=== PATIENT | female | born 2000 | race Caucasian/White ===

== ENCOUNTER 2021-10-13 11:04 | Emergency (ER) | payer OTHER, SELFPAY ==
[2021-10-13 11:15] VITALS: BP 120/65; PULSE 89; RESP 16; TEMP 37.1; O2SAT 99
--- NOTE | 2021-10-13 12:41 | ED.URI ---
HPI - URI/Sore Throat General Chief Complaint: Upper Respiratory Infection Stated Complaint: ears sinus congestion Time Seen by Provider: 10/13/21 12:26 Source: patient and RN notes reviewed Mode of arrival: ambulatory Limitations: no limitations History of Present Illness HPI Narrative: Patient presents today complaining of a 6-day history of facial pressure, cough, bilateral ear pain right greater than left, postnasal drainage, and sore throat. She currently rates her sore throat 5/10 and has been taking Claritin, ibuprofen, and Tylenol with some mild relief. MD elicited complaint: cough, sore throat and nasal congestion Related Data Home Medications Medication Instructions Recorded Confirmed norgestimate-ethinyl estradiol 1 tablet PO DAILY 10/13/21 10/13/21 [[employer]-Lo-Saundra] Allergies Allergy/AdvReac Type Severity Reaction Status Date / Time No Known Allergies Allergy Verified 10/13/21 11:27 Review of Systems Review of Systems: CONSTITUTIONAL: Denies body aches, fever, chills, or sweats. EYES: Denies visual changes, redness, or discharge. ENT: Denies rhinorrhea, or otalgia.+ Congestion, sore throat, postnasal drainage CARDIOVASCULAR: Denies chest pain, palpitations, or edema. RESPIRATORY: Denies dyspnea.+ Cough GASTROINTESTINAL: Denies abdominal pain, nausea, vomiting, or diarrhea. GENITOURINARY: Denies dysuria or hematuria. SKIN: Denies rash, itching, or wounds. MUSCULOSKELETAL: Denies back pain, joint pain, or myalgia. NEUROLOGIC: Denies headache, numbness, tingling, or weakness. PSYCH: Denies depression or anxiety. PMFSH Comments At time of signature, I have reviewed and agree with nursing past medical, surgical, social and family history unless otherwise noted. Please see nursing chart for further information. There is no relevant family history pertinent to the presenting complaint Exam Narrative: GENERAL: Well-appearing, well-nourished, and in no acute distress. HEAD: Normocephalic, atraumatic. EYES: EOMI. No redness or drainage. Conjunctivae normal. ENT: Mucous membranes pink and moist. Nares clear. No rhinorrhea. TMs normal bilaterally. Throat erythematous posteriorly with moderate amount of white postnasal drainage. Uvula midline. NECK: Normal AROM. Supple. No lymphadenopathy. CHEST: No respiratory distress. Clear to auscultation. HEART: Regular rate and rhythm. No murmur appreciated. Normal peripheral pulses. EXTREMITIES: Normal range of motion. No edema. SKIN: Warm, dry, no rash. Capillary refill normal. Normal skin turgor. NEURO: No focal deficits. Alert and oriented x3. Gait steady. PSYCH: Normal affect. No signs of depression or anxiety. Course Vital Signs Vital signs: Vital Signs Temperature 98.7 F 10/13/21 11:15 Pulse Rate 89 10/13/21 11:15 Respiratory Rate 16 10/13/21 11:15 Blood Pressure 120/65 10/13/21 11:15 Pulse Oximetry 99 10/13/21 11:15 Temperature 98.7 F 10/13/21 11:15 Pulse Rate 89 10/13/21 11:15 Respiratory Rate 16 10/13/21 11:15 Blood Pressure 120/65 10/13/21 11:15 Pulse Oximetry 99 10/13/21 11:15 Reviewed MDM - URI/Sore Throat Differential Diagnosis Differential diagnosis: Likely upper respiratory infection, otitis media, sinusitis, viral infection and pharyngitis Critical Care Time Critical Care Time Critical Care Time: No Discharge Plan Discharge Clinical Impression: Upper respiratory infection Qualifiers: URI type: unspecified URI Qualified Code(s): J06.9 - Acute upper respiratory infection, unspecified Patient Disposition: Home, Self-Care Condition: Stable Instructions: Upper Respiratory Infection (DC) Additional Instructions: Cameron's symptoms are likely due to a viral illness, which is not treated with antibiotics. Virus symptoms can last for up to 10-14 days. Take Tylenol or ibuprofen for pain or fever. Rest and stay hydrated. Follow up with your PCP in 7 days if symptoms are not improving, or so
== END 2021-10-13 12:43 | disposition home or self-care (01) ==
PROVIDERS: Emergency Provider Nurse Practitioner; PCP Hospitalist
DX: J06.9 Acute upper respiratory infection, unspecified (principal); J45.909 Unspecified asthma, uncomplicated
CPT/HCPCS: 99213; G0463

== ENCOUNTER 2024-06-12 02:09 | Emergency (ER) | payer OTHER, SELFPAY ==
[2024-06-12 02:14] VITALS: BP 111/75; PULSE 86; RESP 17; TEMP 36.6; O2SAT 98
--- NOTE | 2024-06-12 03:57 | PC.NURSE ---
Patient and Parent to intake desk to notify this rn that they were taking off . This RN offered that if needed they are always welcome to come back, and apologized for the wait. Pt ambulatory with steady gait to exit. No distress Noted.
== END 2024-06-12 04:26 | disposition left against medical advice (07) ==
LOC: ANHED 04:22
DX: R10.9 Unspecified abdominal pain (principal)
CPT/HCPCS: 99199

== ENCOUNTER 2024-06-12 15:03 | Emergency (ER) | payer OTHER, SELFPAY ==
[2024-06-12 15:06] VITALS: BP 115/77; PULSE 96; RESP 16; TEMP 36.7; O2SAT 99
--- NOTE | 2024-06-12 17:08 | ED.ABDPAIN ---
HPI - Abdominal Pain General Chief Complaint: Abdominal Pain Stated Complaint: abd pain Time Seen by Provider: 06/12/24 16:40 History of Present Illness HPI narrative: This is a 23-year-old otherwise healthy female who is approximately 12 weeks by last ultrasonography. Today patient presents to the ED for encounter after her cat had jumped on her lower abdomen earlier in the morning. She states she had a immediate sensation of pain in her lower abdomen that has slowly been subsiding throughout the morning after she took some Tylenol at home. She experienced no gushing of blood or leakage of fluids and has no difficulties going to the bathroom. This is her 1st and she has not had a follow-up OBGYN appointment since her 1st ultrasound. Denies any systemic features at this time and states her pain has mostly subsided. Was previously in her normal state of health. No other trauma or injuries. Related Data Home Medications Medication Instructions Recorded Confirmed montelukast 10 mg tablet 10 mg PO DAILY 02/07/22 02/07/22 (Singulair) pantoprazole 40 mg tablet,delayed 40 mg PO QAM 02/07/22 02/07/22 release Allergies Allergy/AdvReac Type Severity Reaction Status Date / Time vortioxetine Allergy Mild Itching Verified 06/12/24 15:03 [From [employer]] Review of Systems Review of Systems: As reviewed above in the [facility] Surgical History Surgical History History of tonsillectomy Family History Family History Mother Diabetes mellitus Social History Social History Smoking status: Never smoker Alcohol intake: never Substance use: never Living arrangements: with family Occupation/Education: unemployed Gender identity (if verbalized by the patient): Female Exam Narrative: GENERAL: [Well-appearing, well-nourished, and in no acute distress.] HEAD: [Normocephalic, atraumatic.] EYES: [PERRLA and EOMI.] ENT: Nares clear, no rhinorrhea or epistaxis. Mucous membranes moist. NECK: Supple. CHEST: [Clear to auscultation. No respiratory distress.] HEART: [Regular rate and rhythm]. No murmur heard. [Normal peripheral pulses.] ABDOMEN: [Soft, nondistended], [nontender], [No rigidity or guarding] no lesions, bruising or evidence of trauma to the abdomen or pelvis EXTREMITIES: Normal range of motion. [No edema.] SKIN: Warm, dry, no rash. NEURO: [No focal deficits]. Alert and oriented [x3.] PSYCH: [Normal mood and affect.] Course Vital Signs Vital signs: Vital Signs Temperature 36.7 C 06/12/24 15:06 Pulse Rate 96 06/12/24 15:06 Respiratory Rate 16 06/12/24 15:06 Blood Pressure 115/77 06/12/24 15:06 Pulse Oximetry 99 06/12/24 15:06 Oxygen Delivery Room Air 06/12/24 15:06 Temperature 36.7 C 06/12/24 15:06 Pulse Rate 96 06/12/24 15:06 Respiratory Rate 16 06/12/24 15:06 Blood Pressure 115/77 06/12/24 15:06 Pulse Oximetry 99 06/12/24 15:06 Oxygen Delivery Room Air 06/12/24 15:06 MDM - Abdominal Pain MDM Narrative Medical decision making narrative: This is an otherwise healthy 23-year-old female who is approximately 12 weeks by last ultrasonography who sustained some minor abdominal trauma to the lower abdomen/pelvis. Her symptoms are mostly subsided now and occurred earlier this morning after her cat jumped on her. No red flag symptoms such as vaginal bleeding, vaginal leakage of fluids, dysuria, abdominal pain or back pain. Her symptoms subsided with Tylenol. Patient previously had established IUP on ultrasound at her OB GYNs office and she has a follow-up appointment in 4 weeks. A bedside ultrasound was conducted by myself which showed intrauterine with live fetus with a heart rate of approximately 150 beats per minute
[2024-06-12] MEDS: ACETAMINOPHEN 500 MG TABLET 1000 MG PO (17:18)
[2024-06-12 17:20] VITALS: BP 113/69; PULSE 71; RESP 19; O2SAT 100
== END 2024-06-12 17:36 | disposition home or self-care (01) ==
PROVIDERS: Emergency Provider Student in an Organized Health Care Education/Training Program
DX: O9A.211 Injury, poisoning and certain other consequences of external causes complicating pregnancy, first trimester (principal); S39.91XA Unspecified injury of abdomen, initial encounter; Z3A.12 12 weeks gestation of pregnancy; W55.09XA Other contact with cat, initial encounter
CPT/HCPCS: 99282; A9270

== ENCOUNTER 2024-08-27 18:16 | Emergency (ER) | payer OTHER, SELFPAY ==
[2024-08-27 18:22] VITALS: BP 121/70; PULSE 93; RESP 18; TEMP 36.7; O2SAT 100
[2024-08-27 18:53] VITALS: O2SAT 99
--- NOTE | 2024-08-27 19:16 | ED_ITS ---
HPI - Recheck/Abnormal Lab/Rx General Chief Complaint: Recheck/Abnormal Lab/Rx Stated Complaint: 23 weeks preg, low BP Time Seen by Provider: 08/27/24 19:04 History of Present Illness HPI narrative: 23-year-old female who is approximately 23 weeks by last ultrasonography presenting to the emergency department for evaluation of low blood pressure and low blood sugar concerns. Patient states her blood pressure at home was between 106 and 113 systolic and she was concerned that this was low for her. She has been having vague symptoms throughout her including nauseousness, vague pains, dizziness sensations especially when she gets up from a standing position. Endorses some occasional nausea without vomiting. No abdominal pain or vaginal bleeding or discharge. She was otherwise in her normal state of health and states her (ongoing its expected course. She has or OBGYN appointment next week. No complications or concerns from her previous appointment. No trauma injuries or illnesses. Related Data Home Medications Medication Instructions Recorded Confirmed montelukast 10 mg tablet 10 mg PO DAILY 02/07/22 02/07/22 (Singulair) pantoprazole 40 mg tablet,delayed 40 mg PO QAM 02/07/22 02/07/22 release Allergies Allergy/AdvReac Type Severity Reaction Status Date / Time vortioxetine Allergy Mild Itching Verified 06/12/24 15:03 [From [employer]] Review of Systems Review of Systems: As reviewed above [facility] Surgical History Surgical History History of tonsillectomy Family History Family History Mother Diabetes mellitus Social History Social History Smoking status: Never smoker Alcohol intake: never Substance use: never Living arrangements: with family Occupation/Education: unemployed Gender identity (if verbalized by the patient): Female Exam Narrative: GENERAL: [Well-appearing, well-nourished, and in no acute distress.] HEAD: [Normocephalic, atraumatic.] EYES: [PERRLA and EOMI.] ENT: Nares clear, no rhinorrhea or epistaxis. Mucous membranes moist. NECK: Supple. CHEST: [Clear to auscultation. No respiratory distress.] HEART: [Regular rate and rhythm]. No murmur heard. [Normal peripheral pulses.] ABDOMEN: Gravid abdomen above the umbilicus, soft and nondistended, [nontender], [No rigidity or guarding] EXTREMITIES: Normal range of motion. [No edema.] SKIN: Warm, dry, no rash. NEURO: [No focal deficits]. Alert and oriented [x3.] PSYCH: [Normal mood and affect.] Course Vital Signs Vital signs: Vital Signs Temperature 36.7 C 08/27/24 18:22 Pulse Rate 93 08/27/24 18:22 Respiratory Rate 18 08/27/24 18:22 Blood Pressure 121/70 08/27/24 18:22 Pulse Oximetry 100 08/27/24 18:22 Oxygen Delivery Room Air 08/27/24 18:22 Temperature 36.7 C 08/27/24 18:22 Pulse Rate 93 08/27/24 18:22 Respiratory Rate 18 08/27/24 18:22 Blood Pressure 121/70 08/27/24 18:22 Pulse Oximetry 99 08/27/24 18:53 Oxygen Delivery Room Air 08/27/24 18:22 MDM - Recheck/Abnormal Lab/Rx MDM Narrative Medical decision making narrative: 23-year-old female who is approximately 23 weeks by last menstrual period and ultrasonography days. She presents with concerns of low blood pressure although her blood pressure at home readings have been normal within 106 and 113. She has multiple blood pressure readings here in the ED that are also normal she has a unremarkable set of vitals with no tachycardia, fever, hypoxia or blood pressure concerns. She is describing symptomatology that sounds very much like ongoing without any complications however given that she did present to the ED and is worried we did obtain laboratory studies including CBC, BMP magnesium and TSH level. She was counseled on the expected course of and red flags to watch out for. Laboratory studies were la rgely unremarkable and patient was reassured. She has an appointment with her OBGYN in 6 days. Return precautions described and patient was stable for discharge and agreeable at this time. Patient was re-evaluated and continued to be asymptomatic with normal vital signs. Her workup did return with a hemoglobin of 11.5 was is just under the lower limit of normal. No baseline but she does not have any bleeding or concerns for acute anemia. Likely secondary to the ongoing . Small le ukocytosis of 11.1 but no infectious symptoms urinary complaints, or fever so favored to be reactive. Chemistry panel within normal limits, normal renal function panel. Normal TSH levels. Patient was re-evaluated and after we went over her laboratory studies she was stable for discharge home at this time with OBGYN follow-up. She is scheduled with her OBGYN for an appointment in the next 6 days. Patient was given return precautions and stable for discharge at this time. Medical Records Attestation: I reviewed the patient's medical records. Lab Data Attestation: I reviewed the patient's lab results. 08/27/24 20:46 08/27/24 20:46 Labs: Lab Results 08/27/24 Range/Units 20:46 WBC 11.8 H (4.5-10.0) K/mm3 RBC 3.47 L (4.2-5.4) M/mm3 Hgb 11.5 L (12.0-15.0) g/dL Hct 32.5 L (37.0-47.0) % MCV 93.7 (80-100) fl MCH 33.1 (26-34) pg MCHC 35.4 (32-36) g/dl RDW 14.2 (11.5-14.5) % Plt Count 209 (150-375) k/mm3 MPV 10.3 (7.4-10.4) fl Immature Gran % (Auto) 0.7 H (0-0.5) % Neut % (Auto) 71.7 (45.5-73.1) % Lymph % (Auto) 19.0 (18.3-44.2) % [place] % (Auto) 7.1 (2.6-8.5) % Eos % (Auto) 1.2 (0-4.4) % Baso % (Auto) 0.3 (0.2-1.2) % Lymph # (Auto) 2.25 (0.9-3.2) K/mm3 [place] # (Auto) 0.8 H (0.1-0.6) K/mm3 Eos # (Auto) 0.1 (0-0.3) K/mm3 Baso # (Auto) 0.0 (0.0-0.1) K/mm3 Abs Immat Gran (auto) 0.08 H (0.00-0.031) K/mm3 Absolute Neuts (auto) 8.5 H (1.3-6.7) K/mm3 Absolute Nucleated RBC 0.000 (0.0-0.012) K/mm3 Nucleated RBC % 0.0 (0.0-0.2) % Sodium 134 L (137-145) mmol/L Potassium 3.4 (3.4-5.0) mmol/L Chloride 105 (98-107) mmol/L Carbon Dioxide 22 (22-30) mmol/L Anion Gap 7 (4-12) mmol/L BUN 7 (7-17) mg/dL Creatinine 0.50 L (0.7-1.0) mg/dL Estim Creat Clear Calc 150 ml/min Estimated GFR > 60 (59 - ) Glucose 95 (65-110) mg/dL Calcium 9.1 (8.4-10.2) mg/dL Magnesium 1.8 (1.6-2.3) mg/dL TSH (Reflex) 2.400 (0.465-4.68) uIU/mL Discharge Plan Discharge Clinical Impression: Normal exam, Second trimester Patient Disposition: Home, Self-Care Condition: Stable Instructions: Antibiotic Form, (ED), Normal Exam (ED) Additional Instructions: Your laboratory studies were all reassuring, your symptoms are in line with normal progression and I do not have any suspicion for something more serious at this time. Please follow-up with your OBGYN in the next 6 days to keep your appointment. Return at any point with any new or worsening concerns such as vaginal bleeding, fevers, Urinary issues, or any other concerns. Prescriptions: No Action montelukast [Singulair] 10 mg tablet 10 mg PO DAILY pantoprazole 40 mg tablet,delayed release (DR/EC) 40 mg PO QAM Follow-up/Referrals: PHYSICIAN,EXHIBIT DISPLAY REPRESENTATIVE [Primary Care Provider] - Time of Disposition: 21:59
[2024-08-27 20:58] LABS: Basophils Percent Auto 0.3 % (0.2-1.2); Eosinophils Absolute Auto 0.1 K/mm3 (0-0.3); Eosinophils Percent Auto 1.2 % (0-4.4); Hematocrit 32.5 % (37.0-47.0); Hemoglobin 11.5 g/dL (12.0-15.0); Immature Granulocyte Absolute 0.08 K/mm3 (0.00-0.031); Immature Granulocyte Percent A 0.7 % (0-0.5); Lymphocytes Absolute Auto 2.25 K/mm3 (0.9-3.2); Mean Corpuscular HGB Conc 35.4 g/dl (32-36); Mean Corpuscular Hemoglobin 33.1 pg (26-34); Mean Corpuscular Volume 93.7 fl (80-100); Mean Platelet Volume 10.3 fl (7.4-10.4); Monocytes Absolute Auto 0.8 K/mm3 (0.1-0.6); Monocytes Percent Auto 7.1 % (2.6-8.5); Neutrophils Absolute Auto 8.5 K/mm3 (1.3-6.7); Neutrophils Percent Auto 71.7 % (45.5-73.1); Platelet Count Result 209 k/mm3 (150-375); Red Blood Count 3.47 M/mm3 (4.2-5.4); Red Cell Distribution Width 14.2 % (11.5-14.5); White Blood Count 11.8 K/mm3 (4.5-10.0)
[2024-08-27 21:10] LABS: Anion Gap 7 mmol/L (4-12); Blood Urea Nitrogen 7 mg/dL (7-17); Calcium 9.1 mg/dL (8.4-10.2); Carbon Dioxide 22 mmol/L (22-30); Chloride 105 mmol/L (98-107); Estimated CRCL calculation 150 ml/min; Estimated Glomerular Filt Rate > 60; Glucose 95 mg/dL (65-110); Magnesium 1.8 mg/dL (1.6-2.3); Potassium 3.4 mmol/L (3.4-5.0); Sodium 134 mmol/L (137-145)
== END 2024-08-27 22:40 | disposition home or self-care (01) ==
PROVIDERS: Emergency Provider Student in an Organized Health Care Education/Training Program
DX: Z34.02 Encounter for supervision of normal first pregnancy, second trimester (principal); Z3A.23 23 weeks gestation of pregnancy
CPT/HCPCS: 36415; 80048; 83735; 84443; 85025; 99283

== ENCOUNTER 2025-05-06 18:54 | Emergency (ER) | payer OTHER, SELFPAY ==
--- NOTE | 2025-05-06 18:58 | ECG_ITS ---
Test Date: 2025-05-06 19:05:07 Measurements Intervals [place] Rate: 67 P: 35 IA: 142 QRS: 34 QRSD: 93 T: 41 QT: 380 QTc: 402 Interpretive Statements SINUS RHYTHM WITH SINUS ARRHYTHMIA BORDERLINE T WAVE ABNORMALITY- ANTERIOR LEADS BASELINE ARTIFACT- I, III, AVR, AVL BORDERLINE ECG No previous ECG available for comparison Electronically Signed On 05-06-2025 20:34:56 CDT by Zhen May D.O.
--- NOTE | 2025-05-06 19:16 | PC.NURSE ---
Pt and mother ambulatory to triage desk verbally states they are going to go somewhere else to be seen, pt mother continues you guys have a lot going on here. Pt and mother walk out without being seen by provider at 1916.
== END 2025-05-06 22:14 | disposition left against medical advice (07) ==
LOC: ANHED 21:33
PROVIDERS: Emergency Provider Emergency Medicine; PCP Internal Medicine
DX: Z53.21 Procedure and treatment not carried out due to patient leaving prior to being seen by health care provider (principal)
CPT/HCPCS: 93005; 99199

== ENCOUNTER 2025-09-20 15:14 | Emergency (ER) | payer OTHER, SELFPAY ==
--- OUTSIDE RECORDS SUMMARY | 2018-02-24 07:00 | XMS_ITS | Continuity of Care Document ---
Author Organization [id number] [facility] Address [address] [place] [address] Phone Care Team Providers Care Cook Tortilla Name Role Phone Zeinab Paulino MD Unavailable Unavailable Allergies, Adverse Reactions, Alerts Substance Reaction Status Criticality No Known Allergies Active No Inform ation Medications Medication Instructions Dosage Effective Dates (start - stop) Status Comments LORATADINE TABS-OTC 10MG TAKE 1 TABLET DAILY - No Longer Active amoxicillin 875 mg tablet 1 tab po bid - No Longer Active Adderall XR 10 mg capsule,extended release 1 tab po qd - No Longer Active albuterol sulfate HFA 90 mcg/actuation aerosol inhaler 2 puff by Inhalation route every 6 hours ;administer with spacer - No Longer Active Procedures Procedure Date OFFICE/OUTPT EM EST EXP PROB FOCUS/LOW 1 5 MINS OFFICE/OUTPT EM EST EXP PROB FOCUS/LOW 1 5 MINS OFFICE/OUTPT EM EST EXP PROB FOCUS/LOW 1 5 MINS OFFICE/OUTPT EM EST EXP PROB FOCUS/LOW 1 5 MINS OFFICE/OUTPT EM EST EXP PROB FOCUS/LOW 1 5 MINS PREVENTIVE MED ESTABLISHED PT 12-17YRS M OFFICE/OUTPT EM EST EXP PROB FOCUS/LOW 1 5 MINS OFFICE/OUTPT EM EST EXP PROB FOCUS/LOW 1 5 MINS IMMUNIZATION ADMIN SUBQ/IM 1 VACCINE Sep TDAP VACCINE 7 YRS/> IM OFFICE/OUTPT EM EST DETAILED/MODERATE 25 MINS OFFICE/OUTPT EM NEW DETAILED/LOW 30 MINS Advance Directives Directive Yes / No Effective Date File Name No Information Encounters Encounter Description Practice Location Reason(s) For Visit Diagnoses Date Provider Providers Copied on Encounter OFFICE/OUTPT EM EST EXP PROB FOCUS/LOW 15 MINS [id number] - [facility], [address] [address], [place], [place], [facility], tel:[phone] [facility] Abdominal pain (chief complaint) Right upper quadrant abdominal pain Jefferson Arriola. [address] [place] [address], [address] [place] [address], [address] [place] [address] , . tel:[phone] Referring Provider: Zeniab Frias, [address] [place] [address] [address] , [place], [address] . tel:[phone] [id number] - [facility], [address] [place] [address], [place], [facility], tel:[phone] [facility] No Information Jefferson Arriola. [address] [place] [address], [address] [place] [address], [id number] , . tel:[phone] [id number] - [facility], [address] [place] [address], [place], [facility], tel:[phone] [facility] No Information Jefferson Arriola. [address] [place] [address], [address], [place], [id number] , . tel:[phone] [id number] - [facility], [address] [place] [address], [place], [facility], tel:[phone] [facility] No Information Jefferson Arriola. [address] [place] [address], [address], [place], [place], [id number] , . tel:[phone] OFFICE/OUTPT EM EST EXP PROB FOCUS/LOW 15 MINS [id number] - [facility], [address] [facility] [address], [place], [facility], tel:[phone] [facility] check up (chief complaint) Vision problem Jefferson Arriola. [address] [place] [address], [address], [place], [place], [id number] , . tel:[phone] Referring Provider: Zeinab Frias, [address] [place] [address] [address], [place], [address] . tel:[phone] OFFICE/OUTPT EM EST EXP PROB FOCUS/LOW 15 MINS [id number] - [facility], [address] [facility] [address], [place], [facility], tel:[phone] [facility] cough (chief complaint) Acute bronchitis, unspecified organism Jefferson Arriola. [address] [place] [address], [address], [place], [place], [address] , . tel:[phone] Referring Provider: Zeinab Frias, [address] [place] [address] [address], [place], [address] . tel:[phone] OFFICE/OUTPT EM EST EXP PROB FOCUS/LOW 15 MINS [id number] - [facility], [address] [facility] [address], [place], [facility], tel:[phone] [facility] ADD/ADHD (chief complaint) Attention deficit hyperactivity disorder (ADHD), combined type Jefferson Arriola. [address] [place] [address], [address], [place], [place], [id number] , . tel:[phone] Referring Provider: Zeinab Frias, [address] [place] [address] [address], [place], [address] . tel:[phone] OFFICE/OUTPT EM EST EXP PROB FOCUS/LOW 15 MINS [id number] - [facility], [address] [facility] [address], [place], [facility], [place] tel:[phone] [facility] ADD/ADHD (chief complaint) Attention deficit hyperactivity disorder (ADHD), combined typeBody mass index (BMI) 21.0-21.9, adult Jefferson Arriola. [address] [place] [address], [address], [place], [place], [id number] , . tel:[phone] Referring Provider: Zeinab Frias, [address] [place] [address] [address], [place], [address] . tel:[phone] [id number] - [facility], [address] [facility] [address], [place], [facility], [place] tel:[phone] [facility] Uncomplicated asthma, unspecified asthma severity Jefferson Arriola. [address] [place] [address], [address], [place], [place], [address] , . tel:[phone] PREVENTIVE MED ESTABLISHED PT 12-17YRS [id number] - [facility], [address] [facility] [address], [place], [facility], [place] tel:[phone] [facility] physical (chief complaint) Right upper quadrant abdominal painEncounter for routine child health examination with abnormal findings Jefferson Arriola. [address] [place] [address], [address], [place], [place], [id number] , . tel:[phone] Referring Provider: Zeinab Frias, [address] [place] [address] [address], [place], [address] . tel:[phone] OFFICE/OUTPT EM EST EXP PROB FOCUS/LOW 15 MINS [id number] - [facility], [address] [facility] [address], [place], [facility], [place] tel:[phone] [facility] ADD/ADHD (chief complaint)g eneral (chief complaint) Attention deficit hyperactivity disorder (ADHD), combined typeRight foot pain Jefferson Arriola. [address] [place] [address], [address], [place], [place], [id number] , . tel:[phone] Referring Provider: Zeinab Frias, [address] [place] [address] [address], [place], [address] . tel:[phone] OFFICE/OUTPT EM EST EXP PROB FOCUS/LOW 15 MINS [id number] - [facility], [address] [address], [place], [facility], tel:[phone] [facility] foot pain (chief complaint) Right foot pain Jefferson Arriola. [address] [place] [address], [address], [place], [place], [id number] , . tel:[phone] Referring Provider: Zeinab Frias, [address] [place] [address], [place], [address] . tel:[phone] [id number] - [facility], [address] [address], [place], [facility], tel:[phone] [facility] Need for diphtheria-tetan us-pertussis (Tdap) vaccine, adult/adolescent Jefferson Arriola. [address] [place] [address], [address] , [place], [place], [id number] , . tel:[phone] Referring Provider: Zeinab Frias, [address] [place] [address] [address], [place], [address] . tel:[phone] OFFICE/OUTPT EM EST DETAILED/MODE RATE 25 MINS [id number] - [facility], [address] [address], [place], [facility], tel:[phone] [facility] Sinus symptoms (acute) (chief complaint)A bdominal pain (chief complaint) Sinusitis, acuteAbdominal pain Jefferson Arriola. [address] [place] [address], [address], [place], [place], [address] , . tel:[phone] Referring Provider: Zeinab Frias, [address] [place] [address], [place], [address] . tel:[phone] OFFICE/OUTPT EM NEW DETAILED/LOW 30 MINS [id number] - [facility], [address], [place], [address], [place] tel:[phone] [facility] asthma (chief complaint) AsthmaAllergic rhinitisEczema Jefferson Arriola. [address] [facility], [address], [place], [place], [address] , [place]. tel:[phone] Referring Provider: Zeinab Frias, [address] [facility] [address], [place], [address] . tel:[phone] Family History Family Member Type Diagnosis Age At Onset No Information Immunizations Vaccine Date Status Comments Tdap administered Source: [facility] unization Record Payers Payer name Insurance type Covered republican ID Karli jaramillo(s) [facility] [id number] [facility] [id number] Social History Type Description Quantity Date Captured Comments Alcohol Use Details No Caffeine Use Details tea Tobacco Use Status Never smoked tobacco 2017 Smoking Status Never smoker Non-Smoking Tobacco Use Details : No Details Available : No Details Available Sex Female Chief Complaint And Reason For Visit From encounter dated '02/24/2018 13:00'. Abdominal pain (chief complaint). Description: Onset: 2 Years. The severity of the problem is moderate. The problem has worsened. The symptoms are intermittent. The location is right upper quadrant and left upper quadrant. Aggravating factors include fatty foods. Symptoms are relieved by proton pump inhibitors. Associated symptoms include bloating, blood in stool, constipation and nausea. Pertinent negatives include diarrhea, fever and vomiting. Reason For Referral Reason For Referral No Information History Of Present Illness Encounter Date Complaint History Of Prese nt Illness Abdominal pain Onset: 2 Years. The severity of the problem is moderate. The problem has worsened. The symptoms are intermittent. The location is right upper quadrant and left upper quadrant. Aggravating factors include fatty foods. Symptoms are relieved by proton pump inhibitors. Associated symptoms include bloating, blood in stool, constipation and nausea. Pertinent negatives include diarrhea, fever and vomiting. check up had episode of v ision trouble. saw a squiggly line, then it was cloudy and then lost vision in a quadrant of her eye. has occasional headaches. 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 recommended follow up. cough Onset: 2 days ag o. The patient describes the cough as hacking and productive. It occurs persistently. The problem has not changed. There are no aggravating factors. There are no relieving factors. Associated symptoms include cough, dyspnea, fatigue, fever, nasal congestion, post-nasal drainage, rhinitis, rhinorrhea and sore throat. Pertinent negatives include chills. ADD/ADHD Onset: gradually . Quality of life: behaviors create problems at home and behaviors create problems at school. It occurs randomly. The problem is improving. Symptom is aggravated by stress. Relieving factors include stimulant medications. Associated symptoms include loses/forgets things. Pertinent negatives include distracted easily, fidgeting/squirming, frequent careless mistakes, inattentiveness and short attention span. ADD/ADHD Onset: gradually . Quality of life: behaviors create problems at home and behaviors create problems at school. It occurs daily. The problem is improving. Symptom is aggravated by distractions. Relieving factors include stimulant medications. Associated symptoms include disorganization, distracted easily, fidgeting/squirming, frequent careless mistakes, inattentiveness, loses/forgets things and short attention span. physical here for maribel frias. wants to play volleyball. no chest pain or shortness of breath. able to keep up with others. concerned about abdominal pain. epigastric pain. there is nausea. worse with greasy food. happens a couple of times a week. takes nexium that does not help. ADD/ADHD Onset: gradually . Quality of life: behaviors create problems at home and behaviors create problems at school. It occurs randomly. The problem is improving. Symptom is aggravated by distractions. Relieving factors include stimulant medications. Pertinent negatives include disorganization, distracted easily, frequent careless mistakes, inattentiveness, short attention span and talks excessively. general has foot pain in right ankle and foot. pain comes and goes. there is swelling. has been going on for about a month foot pain Onset: 2 days ag o. Severity level is moderate. It occurs constantly and is stable. Location: right foot. There is no radiation. The pain is aching. Context: there is an injury. The pain is aggravated by walking and standing. There are no relieving factors. Associated symptoms include joint tenderness and limping. Pertinent negatives include swelling. Abdominal pain The severity of the problem is moderate. The problem has not changed. The symptoms are recurring. The location is epigastric. The quality of the pain is achy. These symptoms occur after meals. Aggravating factors include milk/dairy products and fatty foods. The denies relieving factors. Associated symptoms include bloating, dyspnea and nausea. Pertinent negatives include back pain, constipation, diarrhea, fever, rash and vomiting. Sinus symptoms (acute) Onset: 1 Week. The severity of the problem is moderate. The symptoms are constant. Both sides are affected. Pertinent/initial symptoms include purulent sinus drainage, sinus congestion and sinus pain. Symptoms are not associated with tobacco use. Associated symptoms include cough, headache, nasal drainage, otalgia, postnasal drainage, sinus pressure and sore throat. Pertinent negatives include fever. asthma The initial visi t date was 01/03/2014. The symptoms have stabilized.minimal The symptoms are minimal. Context: exercise-induced and seasonal. Aggravating factors include change in weather, smoke and strong odors/perfume. Symptom relief is noted with beta-agonist inhaler. Associated symptoms include dyspnea with intense exercise and seasonal rhinitis symptoms. Pertinent negatives include awakening with cough, awakening with dyspnea, awakening with wheeze, dry cough, dyspnea at rest, dyspnea with moderate exercise, post nasal drainage, productive cough, sinusitis and wheezing. Additional information: mom is concerned about depression. feels sad at home. still sleeps good, energy good, enjoys doing things, denies wanting to hurt herself. is about to start her period. Functional Status Date Functional Assessmen t No Information Instructions Date Instruction Additional Infor mation No Information Assessments Type Assessment Date No Information Patient Care Teams Name Effective Dates (start - stop) Status Members No Information
--- OUTSIDE RECORDS SUMMARY | 2018-02-24 07:00 | XMS_ITS | Continuity of Care Document ---
Author Organization [id number] [facility] Address [address] [facility] [address] [place] [address] Phone Care Team Providers Care Geriatric Social Work Professor Name Role Phone Zeinab Paulino MD Unavailable [...] EM EST EXP PROB FOCUS/LOW 15 MINS [id number] - [facility], [address] [address], [place], [place], [facility], tel:[phone] [facility] Abdominal pain (chief complaint) Right upper quadrant abdominal pain Jefferson Arriola. [address] [place] [address], [address] [place] [address], [address] [place] [address] , . tel:[phone] Referring Provider: Zeinab Frias, [address] [place] [address] [address] , [place], [address] . tel:[phone] [id number] - [facility],[employer], [address] [place] [address], [place], [facility], tel:[phone] [facility] No Information Jefferson Arriola. [address] [place] [address], [address] [place] [address], [id number] , . tel:[phone] [id number] - [facility],[employer], [address] [place] [address], [place], [facility], tel:[phone] [facility] No Information Jefferson Arriola. [address] [place] [address], [address], [place], [address] , . tel:[phone] [id number] - [facility],[employer], [address] [place] [address], [place], [facility], tel:[phone] [facility] No Information Jefferson Arriola. [address] [place] [address], [address], [place], [place], [address] , . tel:[phone] OFFICE/OUTPT EM EST EXP PROB FOCUS/LOW 15 MINS [id number] - [facility], [address] [facility] [address], [place], [place], [facility], tel:[phone] [facility] check up (chief complaint) Vision problem Jefferson Arriola. [address] [place] [address], [address], [place], [place], [address] , . tel:[phone] Referring Provider: Zeinab Frias, [address] [place] [address] [address], [place], [address] . tel:[phone] OFFICE/OUTPT EM EST EXP PROB FOCUS/LOW 15 MINS [id number] - [facility], [address] [facility] [address], [place], [place], [facility], tel:[phone] [facility] cough (chief complaint) Acute bronchitis, unspecified organism Jefferson Arriola. [address] [place] [address], [address], [place], [place], [address] , . tel:[phone] Referring Provider: Zeinab Frias, [address] [place] [address] [address], [place], [address] . tel:[phone] OFFICE/OUTPT EM EST EXP PROB FOCUS/LOW 15 MINS [id number] - [facility], [address] [facility] [address], [place], [place], [facility], tel:[phone] [facility] ADD/ADHD (chief complaint) Attention deficit hyperactivity disorder (ADHD), combined type Jefferson Arriola. [address] [place] [address], [address], [place], [place], [address] , . tel:[phone] Referring Provider: Zeinab Frias, [address] [place] [address] [address], [place], [address] . tel:[phone] OFFICE/OUTPT EM EST EXP PROB FOCUS/LOW 15 MINS [id number] - [facility], [address] [facility] [address], [place], [place], [facility], [place] tel:[phone] [facility] ADD/ADHD (chief complaint) Attention deficit hyperactivity disorder (ADHD), combined typeBody mass index (BMI) 21.0-21.9, adult Jefferson Arriola. [address] [place] [address], [address], [place], [place], [address] , . tel:[phone] Referring Provider: Zeinab Frias, [address] [place] [address] [address], [place], [address] . tel:[phone] [id number] - [employer] [facility], [address] [facility] [address], [place], [facility], [place] tel:[phone] [facility] Uncomplicated asthma, unspecified asthma severity Jefferson Arriola. [address] [place] [address], [address], [place], [place], [address] , . tel:[phone] PREVENTIVE MED ESTABLISHED PT 12-17YRS [id number] - [facility], [address] [facility] [address], [place], [facility], [place] tel:[phone] [facility] physical (chief complaint) Right upper quadrant abdominal painEncounter for routine child health examination with abnormal findings Jefferson Arriola. [address] [place] [address], [address], [place], [place], [address] , . tel:[phone] Referring Provider: Zeinab Frias, [address] [place] [address] [address], [place], [address] . tel:[phone] OFFICE/OUTPT EM EST EXP PROB FOCUS/LOW 15 MINS [id number] - [employer] [facility] Physician [facility], [address] [facility] [address], [place], [facility], [place] tel:[phone] [facility] ADD/ADHD (chief complaint)g eneral (chief complaint) Attention deficit hyperactivity disorder (ADHD), combined typeRight foot pain Jefferson Arriola. [address] [place] [address], [address], [place], [place], [address] , . tel:[phone] Referring Provider: Zeinab Frias, [address] [place] [address] [address], [place], [address] . tel:[phone] OFFICE/OUTPT EM EST EXP PROB FOCUS/LOW 15 MINS [id number] - [employer] [facility] Physician [facility], [address] [address], [place], [facility], tel:[phone] [facility] foot pain (chief complaint) Right foot pain Jefferson Arriola. [address] [place] [address], [address], [place], [place], [address] , . tel:[phone] Referring Provider: Zeinab Frias, [address] [place] [address], [place], [address] . tel:[phone] [id number] - [employer] [facility]ician [facility], [address] [address], [place], [facility], tel:[phone] [facility] Need for diphtheria-tetan us-pertussis (Tdap) vaccine, adult/adolescent Jefferson Arriola. [address] [place] [address], [address] , [place], [place], [address] , . tel:[phone] Referring Provider: Zeinab Frias, [address] [place] [address] [address], [place], [address] . tel:[phone] OFFICE/OUTPT EM EST DETAILED/MODE RATE 25 MINS [id number] - [employer] [facility] Physician [facility], [address] [address], [place], [facility], tel:[phone] [facility] Sinus symptoms (acute) (chief complaint)A bdominal pain (chief complaint) Sinusitis, acuteAbdominal pain Jefferson Arriola. [address] [place] [address], [address], [place], [place], [address] , . tel:[phone] Referring Provider: Zeinab Frias, [address] [place] [address], [place], [address] . tel:[phone] OFFICE/OUTPT EM NEW DETAILED/LOW 30 MINS [id number] - [employer] [facility] Physician [facility], [address], [place], [address], [place] tel:[phone] [facility] asthma (chief complaint) AsthmaAllergic rhinitisEczema Jefferson Arriola. [address] [facility], [address], [place], [place], [address] , [place]. tel:[phone] Referring Provider: Zeinab Frias, [address] [facility] [address], [place], [address] . tel:[phone] Family History Family Member Type Diagnosis Age At Onset No Information Immunizations Vaccine Date Status Comments Tdap administered Source: [facility] unization Record Payers Payer name Insurance type Covered republican ID Karli jaramillo(s) [facility]ly [facility] [id number] [facility] [id number] Social History Type Description Quantity Date Captured [...] her eye. has occasional headaches. 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 recommended follow [...]
--- OUTSIDE RECORDS SUMMARY | 2019-06-16 09:00 | XMS_ITS | Continuity of Care Document ---
Author Organization [employer] Address [address] [place] [address] [place] [address] Phone Care Team Providers Care Insurance Administrative Assistant Name Role Phone Zeinab Paulino MD Unavailable Unavailable Allergies, Adverse Reactions, Alerts Substance Reaction Status Criticality No Known allergies Medications Medication Instructions Dosage Effective Dates (start - stop) Status Comments Wellbutrin XL 150 mg 24 hr tablet, extended release 1 tablet extended release 24 hr by oral route every morning - Active albuterol sulfate HFA 90 mcg/actuation aerosol inhaler 2 puff by Inhalation route 4 times per day - Active Ortho Tri-Cyclen LO (28) 0.18 mg/0.215 mg/0.25 mg-25 mcg tablet 1 tab by oral route every 24 hours - Active Lexapro 20 mg tablet take one tablet by mouth once daily - Active Xanax 0.25 mg tablet take one tablet by mouth once daily as needed - Active albuterol sulfate 2.5 mg/3 mL (0.083 %) solution for nebulization 0.756 mL by Inhalation route 4 times per day prn shortness of breath or wheezing - Active LORATADINE TABS-OTC 10MG TAKE 1 TABLET DAILY - Active Ventolin HFA 90 mcg/actuation aerosol inhaler 2 puff by Inhalation route 4 times per day - No Longer Active Procedures Procedure Date IMMUNIZATION ADMIN SUBQ/IM 1 VACCINE May MENINGOCOCCAL CONJ VACC, SERO- A, C, Y & W-135, 4-ADDIS, IM OFFICE/OUTPT EM EST EXP PROB FOCUS/LOW 1 5 MINS OFFICE/OUTPT EM EST DETAILED/MODERATE 25 MINS COLLECTION VENOUS BLOOD VENIPUNCTURE Dec OFFICE/OUTPT EM EST EXP PROB FOCUS/LOW 1 5 MINS OFFICE/OUTPT EM EST EXP PROB FOCUS/LOW 1 5 MINS STREP A ASSAY W/OPTIC OFFICE/OUTPT EM EST EXP PROB FOCUS/LOW 1 5 MINS Advance Directives Directive Yes / No Effective Date File Name No Information Encounters Encounter Description Practice Location Reason(s) For Visit Diagnoses Date Provider Providers Copied on Encounter OFFICE/OUTPT EM EST EXP PROB FOCUS/LOW 15 MINS [facility], [address] [place] [address], [id number], tel:[phone] [facility] depression (chief complaint) Moderate episode of recurrent major depressive disorder 9 Jefferson Arriola. [address] [place] [address], [address], [id number] , [place]. tel:[phone] Referring Provider: Zeinab Whitney, [address] [place] [address] [address], [place], [address] . tel:[phone] [facility], [address] [place] [address], [id number], tel:[phone] [facility] No Information 9 Jefferson Arriola. [address] [place] [address], [address], [id number] , [place]. tel:[phone] [facility], [address] [place] [address], [id number], tel:[phone] [facility] No Information 9 Jefferson Arriola. [address] [place] [address], [address], [id number] , [place]. 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 [address] [place] [address], [address], [place], [id number] , . tel:[phone] Referring Provider: Zeinab Whitney, [address] [place] [address] [address], [place], [address] . tel:[phone] [facility], [address] [place] [address], [id number], tel:[phone] LANDSCAPE ENGINEER [facility] No Information 9 Jefferson Arriola. [address] [place] [address], [address], [place], [address] , . 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 [address] [place] [address], [address], [place], [address] , . tel:[phone] Referring Provider: Zeinab Whitney, [address] [place] [address] [address], [place], [address] . tel:[phone] [facility], [address] [place] [address], [id number], tel:[phone] LANDSCAPE ENGINEER [facility] No Information 9 Jefferson Arriola. [address] [place] [address], [address], [place], [address] , . 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 [address] [place] [address], [address], [place], [id number] , . tel:[phone] Referring Provider: Zeinab Whitney, [address] [place] [address] [address] , [place], [address] . 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 [address] [place] [address], [facility] [address], [place], [id number] , . tel:[phone] Referring Provider: Zeinab Whitney, [address] [place] [address] 5, [place], [address] . tel:[phone] Family History Family Member Type Diagnosis Age At Onset No Information Immunizations Vaccine Date Status Comments meningococcal MCV4P administered Source: New Immunization Record Payers Payer name Insurance type Covered alliance party ID Authormayia milagrossusana(s) [facility] CI [id number] [facility] CI [id number] Social History Type Description Quantity Date Captured Comments Alcohol Use Details No Caffeine Use Details tea Tobacco Use Status Never smoked tobacco 2018 Smoking Status Never smoker Non-Smoking Tobacco Use Details : No Details Available : No Details Available Sex Female Chief Complaint And Reason For Visit From encounter dated '06/16/2019 15:00'. depression (chief complaint). Description: Onset: gradually. The severity of the problem is moderate. The problem has not changed. The frequency of the problem is constant. The type of behavior includes depression and withdrawal. Relevant history positive for frequent school absences. Denies aggravating factors. Denies relieving factors. Associated symptoms include anxiety, depression, fatigue, headaches, sleep disturbances and social withdrawal. Pertinent negatives include homicidal ideation, social withdrawal or suicidal ideation. Reason For Referral Reason For Referral No Information History Of Present Illness Encounter Date Complaint History Of Camilla nt Illness depression Onset: gradually . The severity of the problem is moderate. The problem has not changed. The frequency of the problem is constant. The type of behavior includes depression and withdrawal. Relevant history positive for frequent school absences. Denies aggravating factors. Denies relieving factors. Associated symptoms include anxiety, depression, fatigue, headaches, sleep disturbances and social withdrawal. Pertinent negatives include homicidal ideation, social withdrawal or suicidal ideation. depression The severity of the problem is moderate. The problem has worsened. The frequency of the problem is constant. Symptoms are associated with peer conflicts, stressors in school and stressors in the home. Denies aggravating factors. Denies relieving factors. Associated symptoms include anxiety, depression, difficulty concentrating and sleep disturbances. Pertinent negatives include homicidal ideation, social withdrawal or suicidal ideation. Additional information: not sleeping well. appetite okay, has been cutting her arms. depression Onset: gradually . The severity of the problem is moderate. The problem is improving. The frequency of the problem is occasional. The type of behavior includes depression. Relevant history negative for sexually active. Aggravating factors include stress. Symptoms are relieved by medication. Associated symptoms include fatigue. Pertinent negatives include anxiety, decreased appetite, depression, nausea, sleep disturbances, suicidal ideation or vomiting. depression Onset: gradually . The problem is severe. The problem has not changed. The frequency of the problem is constant. The type of behavior includes crying, depression and withdrawal. Symptoms are associated with stressors in the home. Relevant history negative for frequent school absences and substance abuse. Denies aggravating factors. Denies relieving factors. Associated symptoms include decreased appetite, depression, fatigue and sleep disturbances. Pertinent negatives include headaches, homicidal ideation, manic episodes, nausea, social withdrawal, suicidal ideation or vomiting. sore throat Onset: 3 Days ag o. The severity of the problem is moderate and has not changed. The symptoms are persistent. Symptoms are associated with sick family member. Denies aggravating factors. Associated symptoms include cough, fatigue, headache, myalgia, nasal congestion, otalgia and pharyngitis. Pertinent negatives include chills/rigors, fever, rash and sinus pressure. Functional Status Date Functional Assessmen t No Information Instructions Date Instruction Additional Infor mation No Information Assessments Type Assessment Date No Information Mental Status Date Cognitive Assessment Orientation - [place] ed to time, place, person, situation. Patient Care Teams Name Effective Dates (start - stop) Status Members No Information
--- OUTSIDE RECORDS SUMMARY | 2019-06-16 09:00 | XMS_ITS | Continuity of Care Document ---
Author Organization [employer] Address [address] [place] [address] [place] [address] Phone Care Team Providers Care Decorating Instructor Name Role Phone Zeinab Paulino MD Unavailable [...] EM EST EXP PROB FOCUS/LOW 15 MINS [facility], [address] [place] [address], [id number], tel:[phone] [facility] depression (chief complaint) Moderate episode of recurrent major depressive disorder 9 Jefferson Arriola. [address] [place] [address], [address], [id number] , [place]. tel:[phone] Referring Provider: Zeinab Whitney, [address] [place] [address] [address], [place], [address] . tel:[phone] [facility], [address] [place] [address], [id number], tel:[phone] [facility] No Information 9 Jefferson Arriola. [address] [place] [address], [address], [id number] , [place]. tel:[phone] [facility], [address] [place] [address], [id number], tel:[phone] [facility] No Information 9 Jefferson Arriola. [address] [place] [address], [address], [id number] , [place]. tel:[phone] OFFICE/OUTPT EM EST DETAILED/MOD ERATE 25 MINS [facility], [address] [place] [address], [id number], tel:[phone] [facility] depression (chief complaint) Current moderate episode of major depressive disorder without prior episodeAnxietyIrre gular periods 9 Jefferson Arriola. [address] [place] [address], [address], [place], [id number] , . tel:[phone] Referring Provider: Zeinab Whitney, [address] [place] [address] [address], [place], [address] . tel:[phone] [facility], [address] [place] [address], [id number], tel:[phone] [facility] No Information 9 Jefferson Arriola. [address] [place] [address], [address], [place], [id number] , . tel:[phone] OFFICE/OUTPT EM EST EXP PROB FOCUS/LOW 15 MINS [facility], [address] [place] [address], [id number], tel:[phone] [facility] depression (chief complaint) Moderate episode of recurrent major depressive disorderIrregular periods 9 Jefferson Arriola. [address] [place] [address], [address], [place], [id number] , . tel:[phone] Referring Provider: Zeinab Whitney, [address] [place] [address] [address], [place], [address] . tel:[phone] [facility], [address] [place] [address], [id number], tel:[phone] [facility] No Information 9 Jefferson Arriola. [address] [place] [address], [address], [place], [address] , . tel:[phone] OFFICE/OUTPT EM EST EXP PROB FOCUS/LOW 15 MINS [facility], [address] [place] [address], [id number], tel:[phone] [facility] depression (chief complaint) Current moderate episode of major depressive disorder without prior episode 8201 8 Jefferson Arriola. [address] [place] [address], [address], [place], [id number] , . tel:[phone] Referring Provider: Zeinab Whitney, [address] [place] [address] [address] , [place], [address] . tel:[phone] OFFICE/OUTPT EM EST EXP PROB FOCUS/LOW 15 MINS [facility], [address] [place] [address], [id number], tel:[phone] [facility] sore throat (chief complaint) Pharyngitis, unspecified etiology 0201 8 Jefferson Arriola. [address] [place] [address], [facility] [address], [place], [id number] , . tel:[phone] Referring Provider: Zeinab Whitney, [address] [place] [address] 5, [place], [address] . tel:[phone] Family History Family Member Type Diagnosis Age At Onset No Information Immunizations Vaccine Date Status Comments meningococcal MCV4P administered Source: New Immunization Record Payers Payer name Insurance type Covered constitution party ID Authormayia milagrossusana(s) [facility] CI [id number] [facility] CI [id number] Social History Type Description Quantity Date Captured [...] Mental Status Date Cognitive Assessment Orientation - [place] ed to time, place, person, situation. Patient Care Teams Name Effective Dates (start - stop) Status Members No Information
--- NOTE | ~2025-09-20 | XR_ITS ---
XR foot RT min 3V 09/20/2025 17:08 INDICATION: Right foot pain PROCEDURE: 4 views right foot COMPARISON: No prior studies for comparison. FINDINGS: Fracture, dislocation or subluxation is not identified. Lisfranc joint intact. The soft tissues appear within normal limits. No foreign bodies are identified. IMPRESSION: 1: NO ACUTE BONE OR JOINT ABNORMALITY IDENTIFIED. Reviewed, dictated and finalized at location O. D PATTERN SETTER
--- OUTSIDE RECORDS SUMMARY | 2025-09-20 12:52 | XMS_ITS | Encounter Summary ---
Author Organization [facility] Address [facility] [place] [address] Care Team Providers Care Fire Boss Name Role Phone None, Provider Primary Care Provider Shameka Hernandez RN Unavailable Unavailable Reason for Referral * Imaging (Routine) - Closed Specialty Diagnoses / Procedures Referred By Contac t Referred To Contact RADIOLOGY Diagnoses Dizziness Palpitations Procedures USE ECHOCARDIOGRAM Brett Castellanos MD [facility], [address] [place] [address] Phone: tel: fax: Referral ID Status Reason Start Date Expiration Date Visits Re quested Visits Authorized [id number] Closed 08/08/2025 09/08/2026 1 1 SE SUPERVISOR Reason for Visit * Imaging (Routine) - Closed Specialty Diagnoses / Procedures Referred By Contac t Referred To Contact RADIOLOGY Diagnoses Dizziness Palpitations Procedures USE ECHOCARDIOGRAM Brett Castellanos MD [facility], [address] [place] [id number] Phone: tel: fax: Referral ID Status Reason Start Date Expiration Date Visits Re quested Visits Authorized [id number] Closed 08/08/2025 09/08/2026 1 1 Encounter Details Date Type Department Care Team (Late st Contact Info) Description 09/20/2025 12:52 PM 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 Never 12/17/2024 [facility] Utilities Answer Date Recorded In the past 12 months has [email or web address], gas, oil, or water [employer] threatened to shut off services in your home? No 12/17/2024 Humiliation, Afraid, Rape, and Kick questionnair e Answer Date Recorded Within the last year, have y ou been afraid of your partner or ex-partner? No 12/17/2024 Within the last year, have y ou been humiliated or emotionally abused in other ways by your partner or ex-partner? No Within the last year, have y ou been kicked, hit, slapped, or otherwise physically hurt by your partner or ex-partner? No 12/17/2024 Within the last year, have y ou been raped or forced to have any kind of sexual activity by your partner or ex-partner? No 12/17/2024 Social Connection and Isolation Panel Answer Date Recorded In a typical week, how many times do you talk on the phone with family, friends, or neighbors? More than three times a week 12/17/2024 How often do you get togethe r with friends or relatives? Once a week 12/17/2024 How often do you attend chur ch or latter day services? Never 12/17/2024 Do you belong to any clubs o r organizations such as adventist groups, unions, fraternal or athletic groups, or school groups? No 12/17/2024 How often do you attend meet ings of the clubs or organizations you belong to? Never 12/17/2024 Are you , , di vorced, , never , or living with a partner? Never 12/17/2024 AUDIT-C Answer Date Recorded Q1: How often do you have a drink containing alc ohol? Never 12/17/2024 Q2: How many drinks containi ng alcohol do you have on a typical day when you are drinking? 1 or 2 12/17/2024 Q3: How often do you have six or more drinks on one occasion? Never 12/17/2024 Overall Financial Resource Strain (CARDIA) Answe r Date Recorded How hard is it for you to pa y for the very basics like food, housing, medical care, and heating? Not hard at all 12/17/2024 PHQ-2 Answer Date Recorded Patient Health Questionnaire-2 Score 0 12/17/2024 [facility] - Occupational Stress Questionnaire Answer Date Recorded Do you feel stress - tense, restless, nervous, or anxious, or unable to sleep at night because your mind is troubled all the time - these days? To some extent 12/17/2024 Exercise Vital Sign Answer Date Recorde d On average, how many days pe r week do you engage in moderate to strenuous exercise (like a brisk walk)? 2 days 12/17/2024 On average, how many minutes do you engage in exercise at this level? 10 min 12/17/2024 Hunger Vital Sign Answer Date Recorded Within the past 12 months, y ou worried that your food would run out before you got the money to buy more. Never true 12/17/19 25 Within the past 12 months, t he food you bought just didn't last and you didn't have money to get more. Never true 12/17/2024 PRAPARE - Transportation Answer Date Re corded In the past 12 months, has l ack of transportation kept you from medical appointments or from getting medications? No 11/19 In the past 12 months, has l ack of transportation kept you from meetings, work, or from getting things needed for daily living? No 12/17/2024 Housing Stability Vital Sign Answer Pierre e Recorded In the last 12 months, was t here a time when you were not able to pay the mortgage or rent on time? No 12/17/2024 In the past 12 months, how m any times have you moved where you were living? 1 12/17/2024 At any time in the past 12 m [facility], were you homeless or living in a snf (including now)? No 12/17/2024 Depression Answer Date Recor ded Last EPDS Total Score 9 12/20/2024 Last EPDS Self Harm Result Unrecognized value Comments No Sex and Gender Information Value Date Recorded Sex Assigned at Female 12/17/2024 9:06 PM CHEESE SUPERVISOR Legal Sex Female 8:11 PM CHEESE SUPERVISOR Gender Identity Not on file Sexual Orientation Not on file documented as of this encounter Functional Status * Are you deaf or do you have serious difficulty hearing Answer Date of Assessment Author Status No 12/17/2024 8:41 PM Jennifer Velez RN Active * Are you blind or do you have serious difficulty seeing, even when wearing glasses? Answer Date of Assessment Author Status No 12/17/2024 8:41 PM Jennifer Velez RN Active * Do you have serious difficulty walking or climbing stairs? Answer Date of Assessment Author Status No 12/17/2024 8:41 PM Jennifer Velez RN Active * Do you have difficulty dressing or bathing? Answer Date of Assessment Author Status No 12/17/2024 8:41 PM Jennifer Velez RN Active * Because of a physical, mental, or emotional condition, do you have difficulty doing errands alone such as visiting a doctor's office or shopping? Answer Date of Assessment Author Status No 12/17/2024 8:41 PM Jennifer Velez RN Active documented as of this encounter Mental Status * Because of a physical, mental, or emotional condition, do you have serious difficulty concentrating, remembering, or making decisions? Answer Entry Date Author Status No 12/17/2024 8:41 PM Jennifer Velez RN Active documented in this encounter Plan of Treatment Upcoming Encounters Date Type Department Care Team (Late st Contact Info) Description 11/21/2025 9:15 AM CHEESE SUPERVISOR Office Visit [facility] [place] [id number] Brett Castellanos MD [facility], [address] [place] [address] Pending Results Name Type Priority Associated Diagnoses Date /Time USE ECHOCARDIOGRAM ECHO Routine Dizziness Palpitations 09/20/2025 1:35 PM CHEESE SUPERVISOR Scheduled Orders Name Type Priority Associated Diagnoses Orde r Schedule USE ECHOCARDIOGRAM ECHO Routine Dizziness Palpitations Once for 1 Occurrences starting 09/20/2025 until 09/20/2025 documented as of this encounter Visit Diagnoses Diagnosis Dizziness Dizziness and giddiness Palpitations documented in this encounter Care Teams Fire Boss Relationship Specialty Start Date End Date None, Provider, MD PCP - General UNKNOWN PHYSICIAN SPECIALTY 12/18/24 Shameka Joaquin RN Utilization Review REGISTERED NURSE 12/19/24 documented as of this encounter
[2025-09-20 15:22] VITALS: BP 125/77; PULSE 78; RESP 18; TEMP 36.8; O2SAT 100
--- NOTE | 2025-09-20 15:51 | ED.LOWEXIN ---
HPI - Extremity Injury (Lower) General Chief Complaint: Extremity Injury, Lower <Eunice Desai APRN - Last Filed: 09/20/25 20:32> Stated Complaint: R foot pain <Eunice Desai APRN - Last Filed: 09/20/25 20:32> Time Seen by Provider: 09/20/25 15:52 <Eunice Desai APRN - Last Filed: 09/20/25 20:32> Source: patient, RN notes reviewed and old records reviewed <Eunice Desai APRN - Last Filed: 09/20/25 20:32> Mode of arrival: ambulatory <Eunice Desai APRN - Last Filed: 09/20/25 20:32> Limitations: no limitations <Eunice Desai APRN - Last Filed: 09/20/25 20:32> History of Present Illness HPI Narrative: 24 year old female presents to [facility] care with complaints of helping to move furniture on Friday or Friday with her significant other and she stepped on a PVC pipe that was hollow and it bent causing pain to her right foot. Initially patient states that pain was in her anterior foot and lateral foot radiates to ball of her foot and to ankle. Patient reports that she has some tingling in her foot that radiates to toes. Patient has minimal swelling to foot and strong pedal pulse. Patient is able to ambulate with steady gait. <Eunice Desai APRN - Last Filed: 09/20/25 20:32> MD complaint: foot injury <Eunice Desai APRN - Last Filed: 09/20/25 20:32> Onset (ago): day(s) (3 or 4 days) <Eunice Desai APRN - Last Filed: 09/20/25 20:32> Place: street/outdoors <Eunice Desai APRN - Last Filed: 09/20/25 20:32> Severity scale (1-10): 4 <Eunice Desai APRN - Last Filed: 09/20/25 20:32> Treatments prior to arrival: NSAIDS and other (Tylenol) <Eunice Desai APRN - Last Filed: 09/20/25 20:32> Related Data Home Medications: Home Medications ?Medication ?Instructions ?Recorded ?Confirmed ?Last Taken ?Type pantoprazole 40 mg tablet,delayed 40 mg PO QAM 02/07/22 02/07/22 Unknown History release <Eunice Desai APRN - Last Filed: 09/20/25 20:32> Allergies/Adverse Reactions: Allergies Allergy/AdvReac Type Severity Reaction Status Date / Time vortioxetine (From Allergy Mild Itching Verified 09/20/25 15:25 Trintellix) adhesive Allergy Unknown Unknown Verified 09/20/25 15:25 doxycycline Allergy Unknown Unknown Verified 09/20/25 15:25 <Eunice Desai APRN - Last Filed: 09/20/25 20:32> Review of Systems Review of Systems: CONSTITUTIONAL: Denies fever, chills, or sweats. EYES: Denies visual changes, redness, or discharge. ENT: Denies rhinorrhea, congestion, sore throat, or otalgia. CARDIOVASCULAR: Denies chest pain, palpitations, or edema. RESPIRATORY: Denies cough or dyspnea. GASTROINTESTINAL: Denies abdominal pain, nausea, vomiting, or diarrhea. GENITOURINARY: Denies dysuria or hematuria. SKIN: Denies rash or itching. MUSCULOSKELETAL: Denies back pain,positive for pain to right foot anterior area with minimal swelling, initially hurt also in the ball of foot., or myalgia. NEUROLOGIC: Denies headache, numbness, or weakness. PSYCHIATRIC: Denies anxiety or depression. <Eunice Desai APRN - Last Filed: 09/20/25 20:32> All systems reviewed & are unremarkable except as noted in HPI and below <Eunice Desai APRN - Last Filed: 09/20/25 20:32> [facility] Surgical History Surgical History: Surgical History History of tonsillectomy <Eunice Desai APRN - Last Filed: 09/20/25 20:32> Family History Family History: Family History Mother Diabetes mellitus <Eunice Desai APRN - Last Filed: 09/20/25 20:32> Social History Social History: Social History Alcohol intake: never Substance use: never Living arrangements: with family Occupation/Education: unemployed Gender identity (if verbalized by the patient): Female <Eunice Desai APRN - Last Filed: 09/20/25 20:32> Comments At time of signature, agree with nursing past medical, surgical, social and family history. There is no relevant family history pertinent to the presenting complaint <Eunice Desai APRN - Last Filed: 09/20/25 20:32> Exam Narrative: GENERAL: Well-appearing, well-nourished, and in no acute distress. HEAD: Normocephalic, atraumatic. EYES: PERRLA and EOMI. ENT: Nares clear, no rhinorrhea or epistaxis. Mucous membranes moist. NECK: Supple. no lymphadenopathy CHEST: Clear to auscultation. No respiratory distress.SAO2 100% on room air HEART: Regular rate and rhythm. No murmur heard. Normal peripheral pulses. ABDOMEN: Soft, nontender, nondistended, normal active bowel sounds. EXTREMITIES: Normal range of motion. minimal swelling noted to right foot with pain to anterior aspect of right foot with some radiation to ball of foot and into ankle with ambulation, states some tingling in foot is able to apply full weight bearing. SKIN: Warm, dry, no rash. NEURO: No focal deficits. Alert and oriented x3. <Eunice Desai APRN - Last Filed: 09/20/25 20:32> Course Course Emergency Course: Patient is aware of diagnosis, understands and agrees to treatment plan.? Anticipatory guidance given.? Patient agrees to follow-up as directed and is aware of reasons to seek care at the emergency department. Portions of this record may have been created with voice recognition software <Eunice Desai APRN - Last Filed: 09/20/25 20:32> Level of Care: Express Care Visit <Eunice Desai APRN - Last Filed: 09/20/25 20:32> Vital Signs Vital signs: Vital Signs Temperature 36.8 C 09/20/25 15:22 Pulse Rate 78 09/20/25 15:22 Respiratory Rate 18 09/20/25 15:22 Blood Pressure 125/77 09/20/25 15:22 Pulse Oximetry 100 09/20/25 15:22 Oxygen Delivery Room Air 09/20/25 15:22 Temperature 36.8 C 09/20/25 15:22 Pulse Rate 78 09/20/25 15:22 Respiratory Rate 18 09/20/25 15:22 Blood Pressure 125/77 09/20/25 15:22 Pulse Oximetry 100 09/20/25 15:22 Oxygen Delivery Room Air 09/20/25 15:22 Reviewed <Eunice Desai, LINEN CLERK - Last Filed: 09/20/25 20:32> Vital Signs Temperature 36.8 C 09/20/25 15:22 Pulse Rate 78 09/20/25 15:22 Respiratory Rate 18 09/20/25 15:22 Blood Pressure 125/77 09/20/25 15:22 Pulse Oximetry 100 09/20/25 15:22 Oxygen Delivery Room Air 09/20/25 15:22 Temperature 36.8 C 09/20/25 15:22 Pulse Rate 78 09/20/25 15:22 Respiratory Rate 18 09/20/25 15:22 Blood Pressure 125/77 09/20/25 15:22 Pulse Oximetry 100 09/20/25 15:22 Oxygen Delivery Room Air 09/20/25 15:22 <Lisa العلي, LINEN CLERK - Last Filed: 09/20/25 17:26> MDM - Extremity Injury (Lower) MDM Narrative Medical decision making narrative: 1607 Patient sent to [place] for x-ray since no service available in [place]. Patient arrived to [place], x-ray not available in [place]. X-ray negative, discussed this with patient. Patient sitting comfortably in exam room. Nontoxic and in no acute distress. Discharge instructions reviewed with patient. Patient with no further questions at this time <Eunice Desai, LINEN CLERK - Last Filed: 09/20/25 20:32> Patient arrived to [place], x-ray not available in [place]. X-ray negative, discussed this with patient. Patient sitting comfortably in exam room. Nontoxic and in no acute distress. Discharge instructions reviewed with patient. Patient with no further questions at this time <Lisa العلي LINEN CLERK - Last Filed: 09/20/25 17:26> Differential Diagnosis Differential diagnosis: Likely other (foot pain right, foot contusion, right foot fracture) <Eunicetelma Desai APRN - Last Filed: 09/20/25 20:32> Medical Records Attestation: I reviewed the patient's medical records. <Eunicetelma Desai APRN - Last Filed: 09/20/25 20:32> Imaging Data Radiologist's impression: XR foot RT min 3V 09/20/2025 17:08 INDICATION: Right foot pain PROCEDURE: 4 views right foot COMPARISON: No prior studies for comparison. FINDINGS: Fracture, dislocation or subluxation is not identified. Lisfranc joint intact. The soft tissues appear within normal limits. No foreign bodies are identified. IMPRESSION: 1: NO ACUTE BONE OR JOINT ABNORMALITY IDENTIFIED. <Lisa العلي LINEN CLERK - Last Filed: 09/20/25 17:26> Critical Care Time Critical Care Time Critical Care Time: No <Eunice Eric Desai LINEN CLERK - Last Filed: 09/20/25 20:32> Discharge Plan Discharge Clinical Impression: Acute foot pain <Eunice Desai APRN - Last Filed: 09/20/25 20:32> Patient Disposition: Home <Eunicetelma Desai APRN Hollie Last Filed: 09/20/25 20:32> Condition: Stable <Eunice Desai APRN - Last Filed: 09/20/25 20:32> Instructions: Foot Contusion (ED), Foot Sprain (ED) <Eunice Desai APRN - Last Filed: 09/20/25 20:32> Additional Instructions: Your Xray did not show a fracture. Wear good supportive shoes at all times. Ice should be applied to help reduce swelling. It can be used for 20 to 30 minutes, every 2-3 hours while awake. Do not apply ice directly to your skin. You can alternate ibuprofen 600mg and Tylenol 650mg every 4 hours as needed for pain Please schedule a follow-up visit with your personal physician for further evaluation and treatment within 2 weeks especially if symptoms persist. For new or worsening symptoms go directly to the emergency room <Eunice Desai APRN - Last Filed: 09/20/25 20:32> Patient Language: Kiswahili <Eunice Desai APRN - Last Filed: 09/20/25 20:32> Prescriptions: No Action pantoprazole 40 mg tablet,delayed release (DR/EC) 40 mg PO QAM <Eunice Desai APRN - Last Filed: 09/20/25 20:32> Follow-up/Referrals: Michael,Simone Corado MD [Primary Care Provider, Unknown] - 1 Week Clinical Impression: Acute foot pain <Eunice Desai APRN - Last Filed: 09/20/25 20:32> Time of Disposition: 17:22 <Eunice Desai APRN - Last Filed: 09/20/25 20:32> 17:22 <Lisa العلي APRN - Last Filed: 09/20/25 17:26> Quality Lisbet Coma Scale Eyes: Open <Eunice Desai APRN - Last Filed: 09/20/25 20:32> Verbal: Oriented and Alert <Eunice Desai APRN - Last Filed: 09/20/25 20:32> Motor: Follows Commands <Eunice Desai APRN - Last Filed: 09/20/25 20:32> [place] Coma Total Score: 15 <Eunice Desai APRN - Last Filed: 09/20/25 20:32>
--- NOTE | 2025-09-20 16:07 | PC.NURSE ---
Pt sent to [facility] for Xray of right foot due to no Radiolgy Tech at [place]. Pt left in stable condition.
--- OUTSIDE RECORDS SUMMARY | 2025-09-20 16:34 | XMS_ITS | Encounter Summary ---
Author Organization [facility] Address [address] [place] [address] Care Team Providers Care Electronic Technologist Name Role Phone None, Provider Primary Care Provider Shameka Hernandez RN Unavailable Unavailable Encounter Details Date Type Department Care Team (Latest Contact Info) Description 09/20/2025 Travel Social History Tobacco Use Types Packs/Day Years [...] from your doctor or pharmacy? Never 12/17/2024 [facility] Utilities Answer Date Recorded In the past [address] [facility] [place] [employer], gas, oil, or water [employer] threatened to shut off services in your [...] often do you attend chur ch or restorationism services? Never 12/17/2024 Do you belong to any clubs o r organizations such as worship groups, unions, fraternal or athletic groups, or [...] Patient Health Questionnaire-2 Score 0 12/17/2024 [facility] of Occupat ional Health - Occupational Stress [...] any time in the past 12 m [facility], were you homeless or living in a retirement (including now)? No 12/17/2024 Depression Answer Date Recor ded Last EPDS Total Score 9 12/20/2024 Last EPDS Self Harm Result Unrecognized value Comments No Sex and Gender Information Value Date Recorded Sex Assigned at Female 12/17/2024 9:06 PM ENTRY LEVEL ACCOUNTANT Legal Sex Female 8:11 PM ENTRY LEVEL ACCOUNTANT Gender Identity Not on file Sexual Orientation [...] Assessment Author Status No 12/17/2024 8:41 PM ENTRY LEVEL ACCOUNTANT Wise, Jennifer L, RN Active documented as of this encounter Mental Status * Because of a physical, mental, or emotional condition, do you have serious difficulty concentrating, remembering, or making decisions? Answer Entry Date Author Status No 12/17/2024 8:41 PM ENTRY LEVEL ACCOUNTANT Jennifer Wise RN Active documented in this encounter Plan of Treatment Upcoming Encounters Date Type Department Care Team (Late st Contact Info) Description 11/21/2025 9:15 AM ENTRY LEVEL ACCOUNTANT Office Visit [facility] [address] [facility] [facility] [address] [place] [address] Brett Castellanos MD [facility], [address] [place], [place] [id number] documented as of this encounter Visit Diagnoses Not on filedocumented in this encounter Care Teams Electronic Technologist Relationship Specialty Start Date End Date None, Provider, PCP - General UNKNOWN PHYSICIAN SPECIALTY 12/18/24 Shameka Joaquin RN Utilization Review REGISTERED NURSE 12/19/24 documented as of this encounter
--- OUTSIDE RECORDS SUMMARY | 2025-09-20 16:34 | XMS_ITS | Clinical Summary ---
Author Organization [facility] Address [address] [place] [id number] Care Team Providers Care Retail Product Advisor Name Role Phone None, Provider MD Primary Care Provider Shameka Hernandez RN Unavailable Unavailable Allergies Active Allergy Reactions Criticality Noted Date Comments Doxycycline Nausea Only High 02/12/2025 Iodinated Contrast Media Anaphylaxis,Shortnes s of Breath,Swelling High 11/14/2024 Tape Hives High 02/27/2010 Rips skin off Adhesive agent (substance) Vortioxetine Itching,Unknown,Othe r (see comment) Low 02/16/2020 Trintellix, itchy vortioxetine Wound Dressing Adhesive Itching 11/18/2024 Bandage adhesive Medications vitamin w/ iron-folic acid ( PLUS) 29-1 MG Tab tablet Take 1 tablet by mouth daily. Active albuterol sulfate HFA 108 (90 Base) MCG/ACT inhaler Inhale 2 puffs into the lungs every 6 (six) hours as needed for Wheezing. Active Drospirenone (SLYND) 4 MG Tab 5 Active fluticasone propionate (FLONASE) 50 MCG/ACT nasal spray 2 sprays by Each Nostril route daily. SHAKE LIQUID Active loratadine (CLARITIN) 10 MG tablet Take 1 tablet (10 mg total) by mouth daily. Active pantoprazole EC (PROTONIX) 40 MG tablet Take 1 tablet (40 mg total) by mouth daily. 5 Active triamcinolone (KENALOG) 0.1 % cream APPLY SPARINGLY TWICE A DAY TO THE AFFECTED AREA. RUB CREAM IN UNTIL INVISIBLE. 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 Pt's mother was negative and was told patient did not need tested. 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 Mom voiced understanding.Flovent 44 1 puff bid, Xopenex 1-2 pufffs evry 6-8 h prn, Singulair 4 mg qd ordered in [facility] 1. D/w mom if pt using Xopenex more than twice per week after 2 weeks, increase dose to 2 puffs bid. If symptoms still not controlled, RTC for re-evaluation. Asthma education consult placed to population health iin [facility] 1. 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 Resolved Problems Problem Noted Date Diagnosed Date Resolved Date Referral of patient without examination or treatment 08/08/2025 08/15/2025 12/17/2024 08/08/2025 Encounters Date Type Department Care Team Description 09/20/2025 12:52 PM MEAT PUMPER Hospital Encounter [facility] Ultrasound [address] [place] [address] Brett Tran MD Arrived 09/20/2025 Travel 08/15/2025 1:00 PM CDT Telephone [facility] [place] [address] [place] [address] Brett Tran MD Holter Monitor 08/08/2025 11:45 AM CDT Office Visit [facility] [address] [place] [id number] Brett Tran MD Bradycardia (CONSULT) 08/08/2025 Orders Only [facility] [address] [place], [place] [id number] Alannah Arroyo MA 08/08/2025 Travel from Last 3 Months Family History Medical History Relation Comments No Known Problems Mother Relation Status Comments Mother Alive Social History Tobacco Use Types Packs/Day Years Used Date Smoking Tobacco: Never Smokeless Tobacco: Never Tobacco Cessation:Counseling Given: Not Answered Alcohol Use Standard Drinks/Week Comments Not Currently 0 (1 standard drink = 0.6 oz pur e alcohol) B1300 Health Literacy Answer Date Recor ded How often do you need to hav e someone help you when you read instructions, pamphlets, or other written material from your doctor or pharmacy? Never 12/17/2024 [facility] Utilities Answer Date Recorded In the past 12 months has [employer] gas, oil, or water company threatened to shut off services in your [...] 12/17/2024 How often do you attend chur or latter-day services? Never 12/17/2024 Do you belong to any clubs o r organizations such as taoism groups, unions, fraternal or athletic groups, or [...] Recorded Patient Health Questionnaire-2 Score 0 12/17/2024 [facility] [place] of Occupat ional Health - Occupational Stress [...] any time in the past 12 m [facility], were you homeless or living in a intermediate (including now)? No 12/17/2024 Depression Answer Date Recor ded Last EPDS Total Score 9 12/20/2024 Last EPDS Self Harm Result Unrecognized value Comments No Sex and Gender Information Value Date Recorded Sex Assigned at Female 12/17/2024 9:06 PM MEAT PUMPER Legal Sex Female 8:11 PM MEAT PUMPER Gender Identity Not on file Sexual Orientation Not on file Last Filed Vital Signs Vital Sign Reading Time Taken Comments Blood Pressure 90/64 08/08/2025 11:59 AM CDT Pulse 83 08/08/2025 11:59 AM CDT Temperature 36.8 C (98.3 F) 12/20/2024 8:00 PM MEAT PUMPER Respiratory Rate 18 12/21/2024 9:00 AM MEAT PUMPER Oxygen Saturation 99% 08/08/2025 11:59 AM CDT Inhaled Oxygen Concentration - - Weight 85.9 kg (189 lb 6.4 oz) 08/08/2025 11:59 AM CDT Height 162.6 cm (5' 4) 08/08/2025 11:59 AM CDT Body Mass Index 32.51 08/08/2025 11:59 AM CDT Plan of Treatment Upcoming Encounters Date Type Department Care Team (Late st Contact Info) Description 11/21/2025 9:15 AM MEAT PUMPER Office Visit [facility] [address] [place] [address] Brett Tran MD [facility], [address] [place] [address] Health Maintenance Due Date Last Done Comments Cervical Cancer Screening Pap Smear (Age 21 to 29) Every 3 Years 2001 Cervical Cancer Screening 2001 Annual Physical 2004 HPV Vaccines (1 - 3-dose series) 2016 Chlamydia Screening Females ages 16-24 2017 Meningococcal B Vaccine (1 of 2 - Standard) 2017 Pneumococcal Vaccine: Pediatrics (0 to 5 Years) and At-Risk Patients (6 to 49 Years) (1 of 2 - PCV) 2020 COVID-19 Vaccine (3 - season) 2025 01/09/2022, 12/19/2021 Influenza Adult (#1) 2025 DTaP, Tdap and Td Vaccines (8 - Td or Tdap) 06/09/2035 06/09/2025, 05/14/2023, 06/10/2006, Additional history exists Hepatitis B Vaccines Completed 12/23/2002, 03/15/2002, 01/14/2002 Hepatitis A Vaccines Completed 12/24/2010, 06/10/20 Hepatitis C Completed 01/19/2025 Meningococcal Vaccine Aged Out No colt jase eligible based on patient's age to complete this topic RSV Immunizations Under 20 Months Aged Out No longer eligible based on patient's age to complete this topic Interventions Community Resource Recommendations Community Resource Services Recommended Domains Addressed Status Status Reason/Outcome Date/Time [facility] Services, Mental Health Education, Mental Health Evaluation, Mental Health Services Stress, Depression Recommended 06/06/2025 9:42 PM CDT from Last 12 Months Procedures Procedure Name Priority Date/Time Associated Diagnosis Comments ELECTROCARDIOGRAM (NON MIDMARK ACQUIRED) Routine 08/08/2025 12:10 PM CDT Hyperlipidemia, unspecified hyperlipidemia type from Last 3 Months Results * ELECTROCARDIOGRAM (08/08/2025 12:10 PM CDT) 08/08/2025 12:1 0 PM CDT Narrative [facility] - 08/15/2025 9:12 PM CDT [facility] [place] Test Date: 2025-08-08 Pat Name: MINOR MAGAÑA Department: 150 Room: Gender: Female Hearing Aid Consultant: : 2000 Requested By: BRETT TRAN Order Number: [id number] Reading MD: Gemini De Dios Measurements Intervals [place] Rate: 73 P: 55 IA: 142 QRS: 61 QRSD: 92 T: 52 QT: 372 QTc: 412 Interpretive Statements SINUS RHYTHM WITH SINUS ARRHYTHMIA Procedure Note Gemini De Dios MD - 08/15/2025 [facility] [place] Test Date: 2025-08-08 Pat Name: MINOR BEYERERS Department: 150 Room: Gender: Female Hearing Aid Consultant: Ag : 2000 Requested By: BRETT TRAN Order Number: [id number] Reading MD: Gemini De Dios Measurements Intervals [place] Rate: 73 P: 55 IA: 142 QRS: 61 QRSD: 92 T: 52 QT: 372 QTc: 412 Interpretive Statements SINUS RHYTHM WITH SINUS ARRHYTHMIA us Brett Tran MD PROCEDURES-ORDERABLE NO C HARGE Final Result [facility] from Last 3 Months Insurance [facility] MEDICAID Advance Directives * Full Code (Latest Code Status on File) Date Activated Date Inactivated Comments 12/17/2024 9:21 PM 12/21/2024 5:13 PM Care Teams Retail Product Advisor Relationship Specialty Start Date End Date None, Provider, MD PCP - General UNKNOWN PHYSICIAN SPECIALTY 12/18/24 Shameka Joaquin, JAIDEN Utilization Review REGISTERED NURSE 12/19/24
--- OUTSIDE RECORDS SUMMARY | 2025-09-20 16:34 | XMS_ITS | Clinical Summary ---
Author Organization [facility] Address [address] [place] [address] Care Team Providers Care Feather Mixer Name Role Phone Zeinab Paulino MD Primary Care Provider [phone] [facility],non-owned Affiliates and Associated Physician Practices is amultiple site organization consisting of ambulatory clinics and hospital sitesin [place], [place], [place] and [place]. This disclosure is being madepursuant to the Care Everywhere program and may not contain all information available regarding this patient. Last updated 18.[facility] Allergies No known active allergies Medications * Be aware that medications may not be up to date on this document. Alwaysverify current medications with the patient. amphetamine-dex troamphetamine XR 24hr (ADDERALL XR) 10 MG capsule Take 10 mg by mouth every morning Active loratadine (CLARITIN) 10 MG tablet Take 10 mg by mouth once daily Active Probiotic Product (PROBIOTIC DAILY PO) Take 1 Tab by mouth once daily Active Active Problems Problem Noted Date Diagnosed Date Epigastric abdominal pain 04/01/2016 Overview (04/08/2016): February, CBC, CMP, CRP, Amylase, Lipase--WNL March 2016 EGD--Normal with normal path. Dyspepsia 04/01/2016 Family History Medical History Relation Name Comments GERD - Gastroesophageal Reflux Disease Father IBS Maternal Aunt Cholelithiasis Mother GERD - Gastroesophageal Reflux Disease Mother Cholelithiasis Paternal Grandmother Relation Name Status Comments Father Maternal Aunt Mother Paternal Grandmother Social History Tobacco Use Types Packs/Day Years Used Date Smoking Tobacco: Never Smokeless Tobacco: Never Alcohol Use Standard Drinks/Week Comments Never 0 (1 standard drink = 0.6 oz pur e alcohol) AUDIT-C Answer Date Recorded Q1: How often do you have a drink containing alc ohol? Never 08/03/2020 Average Number of Drinks Not on file 020 Frequency of Binge Drinking Not on file 07/18 Comments No Sex and Gender Information Value Date Recorded Sex Assigned at Not on file Legal Sex Female 4:22 AM [employer] Gender Identity Not on file Sexual Orientation Not on file Last Filed Vital Signs Vital Sign Reading Time Taken Comments Blood Pressure 136/88 08/03/2020 5:18 PM CDT Pulse 81 08/03/2020 5:18 PM CDT Temperature 36.5 C (97.7 F) 08/03/2020 5:18 PM CDT Respiratory Rate 16 08/03/2020 5:18 PM CDT Oxygen Saturation 99% 08/03/2020 5:18 PM CDT Inhaled Oxygen Concentration - - Weight 70 kg (154 lb 5.2 oz) 08/03/2020 2:20 PM CDT Height 162.6 cm (5' 4) 08/03/2020 2:20 PM CDT Body Mass Index 26.49 08/03/2020 2:20 PM CDT Plan of Treatment Health Maintenance Due Date Last Done Comments HIV SCREENING 2016 HPV VACCINE (1 - 3-dose series) 2016 CHLAMYDIA/GONORRHEA SCREENING 2017 MENINGOCOCCAL (Group B) VACC INE SHARED DECISION-MAKING (1 of 2 - Standard) 2017 HEPATITIS C SCREENING 11/03/2019 DTAP/TDAP/TD VACCINES (1 - Tdap) 2020 HEPATITIS B VACCINE (1 of 3 - 19+ 3-dose series) 2020 DEPRESSION SCREENING 11/17/2024 COVID-19 VACCINE (1 - 2023-2 5 season) 2025 INFLUENZA VACCINE (#1) 2025 ZOSTER VACCINE (1 of 2) 2051 HIB VACCINE Aged Out No longer eligi ble based on patient's age to complete this topic MENINGOCOCCAL GROUPS A/C/Y/W VACCINE Aged Out No longer eligible b ased on patient's age to complete this topic PNEUMOCOCCAL VACCINE Aged Out No long er eligible based on patient's age to complete this topic Insurance Care Teams Feather Mixer Relationship Specialty Start Date End Date Zeinab Paulino MD PCP - General Family Medicine 11/28/15
--- OUTSIDE RECORDS SUMMARY | 2025-09-20 16:34 | XMS_ITS | Data Portability ---
Author Organization [employer] , [facility] Address [address] [place] [address] Assessment Encounter Date Assessment Date Assessment LastModified by Organization Details LastModified Time 05/10/2025 05/10/2025 24-year-old female with a history of Polycystic Ovary Syndrome PCOS) presenting with dysuria, dizziness, and for an initial prescription of oral contraception. The dysuria has resolved, but a urine culture is pending to rule out a urinary tract infection. The dizziness and bradycardia episodes, characterized by a heart rate dropping to 50 bpm, suggest a possible cardiovascular. A cardiology referral is warranted for further evaluation. The patient is not currently on control and has not had a menstrual period since January. She is seeking oral contraception to manage her PCOS and reduce the risk of uterine cancer. A prescription for Nextstellis, a combination of estrogen and progesterone, is planned pending a negative test. During the consultation, I discussed the patient's symptoms of dysuria and the plan to send a urine culture to rule out a urinary tract infection. We also addressed her dizziness and bradycardia, recommending a cardiology referral to explore potential causes. The importance of monitoring heart rate and blood pressure was emphasized. For her Polycystic Ovary Syndrome (PCOS), we discussed the benefits of starting oral contraception to manage symptoms and protect her uterine lining. I explained the prescription process for Nextstellis, pending a negative test, and provided information on how the medication would be delivered through [facility]. Not available 05/10/2025 18:51:10 Plan of Treatment Reminders Order Date Submit Date Provider Last Modified By Organization Details Last Modified Time Details Appointments None recorded. Lab test, urine 2024 025 [email or web address] [facility], [address] [facility], [place], [address], 5 15:16:20 culture, urine 2024 025 [email or web address], [address] [facility], [place], [address], 5 20:23:08 test, urine 2024 025 [email or web address] [facility], [address] [place], [address], 18:51:37 CBC w/ auto diff 2024 025 [employer] [facility], [address] [place], [address], 5 10:49:08 TSH, serum, reflex free T4 2024 025 [employer] [facility], [address] [place], [address], 5 11:40:35 CMP, serum or plasma 2024 025 [employer], [address] [place], [address], 5 10:28:19 prolactin, serum 2024 025 [employer], [address] [place], [address], 5 10:43:38 Referral cardiologis t referral - Consult, evaluate and treat for symptomatic bradycardia . 2024 025 [email or web address] 1 [facility], [address] [facility], [address] [place] [address], [place], [address], 5 11:54:30 Procedures None recorded. Surgeries None recorded. Imaging None recorded. Medication Orders Nextstellis 3 mg-14.2 mg (28) tablet 2024 025 SHANNEN Galan, [address] [facility], [address], [place], [address], 14:52:11 Zurzuvae 25 mg capsule 2024 025 [email or web address] [facility] [id number], [address], 14:35:40 escitalopra m 10 mg tablet 2024 025 SHANNEN [facility] [id number], [address], 14:35:18 Patient TargetsNo targets recorded. 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 - Schedule an appointment with a patient accounting representative for further evaluation of dizziness and bradycardia. - Follow up with primary care for additional evaluation of dizziness and headaches. - Await results of urine culture and follow up if symptoms of dysuria return. - Begin taking Nextstellis as prescribed once test is confirmed negative. Not available 05/10/2025 18:50:28 Reason for Referral Advertising Writer Referral for Br adycardia Consult, evaluate and treat for symptomatic bradycardia. Referring Physician: Richelle Lala, CLIENT ADVISOR, Encounter Date: 05/10/2025 Results Created Date Observation Date Name Description Value Unit Range Abnormal Flag Note LastModifiedBy Organization Detail LastModifiedTime 01/10/20 25 01/11/2025 COMPR EHENS DOE METAB OLIC PANEL sodium 145 mmol/ L 136 - 145 normal Not Available [address], [address], 01/11/2025 12:13:25 01/10/20 25 01/11/2025 COMPR EHENS DOE METAB OLIC PANEL potassium 4.7 mmol/ L 3.5 - 5.1 normal Not Available [address], [address], 01/11/2025 12:13:25 01/10/20 25 01/11/2025 COMPR EHENS DOE METAB OLIC PANEL chloride 106 mmol/ L 98 - 107 normal Not Available [address], [address], 01/11/2025 12:13:25 01/10/20 25 01/11/2025 COMPR EHENS DOE METAB OLIC PANEL glucose 93 mg/dL 74 - 106 normal Not Available [address], [address], 01/11/2025 12:13:25 01/10/20 25 01/11/2025 COMPR EHENS DOE METAB OLIC PANEL carbon dioxide 28 mmol/ L 20 - 32 normal Not Available [address], [address], 01/11/2025 12:13:25 01/10/20 25 01/11/2025 COMPR EHENS DOE METAB OLIC PANEL calcium 9.2 mg/dL 8.5 - 10.1 normal Not Available [address], [address], 01/11/2025 12:13:25 01/10/20 25 01/11/2025 COMPR EHENS DOE METAB OLIC PANEL creatinine 0.87 mg/dL 0.60 - 1.00 normal Not Available [address], [address], 01/11/2025 12:13:25 01/10/20 25 01/11/2025 COMPR EHENS DOE METAB OLIC PANEL eGFR 96 mL/mi n/1.7 3m2 >60 normal The eGFR is based on the CKD-E PI 2020 equat ion. To calcu late the new eGFR from a previ ous Creat inine or Cysta maine C resul t, go to https ://morena chao.srinivas mahoney/pr ofess ional s/kdo qi/gf r_cal culat or Not Available [address], [address], 01/11/2025 12:13:25 01/10/20 25 01/11/2025 COMPR EHENS DOE METAB OLIC PANEL AST 10 U/L 15 - 37 low Not Available [address], [address], 01/11/2025 12:13:25 01/10/20 25 01/11/2025 COMPR EHENS DOE METAB OLIC PANEL ALT 14 U/L 14 - 59 normal Not Available [address], [address], 01/11/2025 12:13:25 01/10/20 25 01/11/2025 COMPR EHENS DOE METAB OLIC PANEL alk phos 138 U/L 46 - 116 high Not Available [address], [address], 01/11/2025 12:13:25 01/10/20 25 01/11/2025 COMPR EHENS DOE METAB OLIC PANEL albumin 4.1 g/dL 3.4 - 5.0 normal Not Available [address], [address], 01/11/2025 12:13:25 01/10/20 25 01/11/2025 COMPR EHENS DOE METAB OLIC PANEL protein, total 7.1 g/dL 6.4 - 8.2 normal Not Available [address], [address], 01/11/2025 12:13:25 01/10/2001/11/2025 COMPR EHENS DOE METAB OLIC PANEL bilirubin, total 0.3 mg/dL 0.2 - 1.0 normal Not Available [address], [address], 01/11/2025 12:13:25 01/10/20 25 01/11/2025 COMPR EHENS DOE METAB OLIC PANEL urea nitrogen (BUN) 16 mg/dL 7 - 18 normal Not Available [address], [address], 01/11/2025 12:13:01/10/20 25 01/11/2025 CBC (INCL UDES DIFF/ PLT) WBC 5.5 thous and/u L 4.0 - 9.8 normal Not Available [address], [address], 01/11/2025 12:13:26 01/10/20 25 01/11/2025 CBC (INCL UDES DIFF/ PLT) RBC 4.2 marcy on/uL 3.9 - 4.9 normal Not Available [address], [address], 01/11/2025 12:13:26 01/10/20 25 01/11/2025 CBC (INCL UDES DIFF/ PLT) hemoglobin 12.5 g/dL 11.8 - 14.8 normal Not Available [address], [address], 01/11/2025 12:13:26 01/10/20 25 01/11/2025 CBC (INCL UDES DIFF/ PLT) hematocrit 38.6 % 35.5 - 44.0 normal Not Available [address], [address], 01/11/2025 12:13:26 01/10/20 25 01/11/2025 CBC (INCL UDES DIFF/ PLT) MCV 92.1 fL 82.0 - 99.0 normal Not Available [address] [place], [address], 01/11/2025 12:13:26 01/10/20 25 01/11/2025 CBC (INCL UDES DIFF/ PLT) MCH 29.8 pg 27.2 - 32.6 normal Not Available [address], [address], 01/11/2025 12:13:26 01/10/20 25 01/11/2025 CBC (INCL UDES DIFF/ PLT) MCHC 32.4 g/dL 31.5 - 35.5 normal Not Available [address], [address], 01/11/2025 12:13:01/10/20 25 01/11/2025 CBC (INCL UDES DIFF/ PLT) RDW-CV 13.4 % 11.5 - 14.5 normal Not Available [address], [address], 01/11/2025 12:13:26 01/10/20 25 01/11/2025 CBC (INCL UDES DIFF/ PLT) platelet 344 thous and/u L 140 - 350 normal Not Available [address], [address], 01/11/2025 12:13:26 01/10/20 25 01/11/2025 CBC (INCL UDES DIFF/ PLT) MPV 10.4 fL 9.3 - 12.4 normal Not Available [address], [address], 01/11/2025 12:13:26 01/10/20 25 01/11/2025 CBC (INCL UDES DIFF/ PLT) absolute neutrophil 3.05 thous and/u L 1.90 - 7.00 normal Not Available [address], [address], 01/11/2025 12:13:26 01/10/20 25 01/11/2025 CBC (INCL UDES DIFF/ PLT) absolute lymphocyte 1.79 thous and/u L 0.70 - 4.50 normal Not Available [address], [address], 01/11/2025 12:13:26 01/10/20 25 01/11/2025 CBC (INCL UDES DIFF/ PLT) absolute monocyte 0.39 thous and/u L 0.10 - 1.30 normal Not Available [address], [address], 01/11/2025 12:13:26 01/10/20 25 01/11/2025 CBC (INCL UDES DIFF/ PLT) absolute eosinophil 0.26 thous and/u L <0.70 normal Not Available [address], [address], 01/11/2025 12:13:26 01/10/20 25 01/11/2025 CBC (INCL UDES DIFF/ PLT) absolute basophil 0.02 thous and/u L <0.20 normal Not Available [address], [address], 01/11/2025 12:13:26 01/10/20 25 01/11/2025 CBC (INCL UDES DIFF/ PLT) absolute immature granulocyte 0.01 thous and/u L <0.03 normal Not Available [address], [address], 01/11/2025 12:13:26 01/10/20 25 01/11/2025 URIC ACID uric acid 5.4 mg/dL 2.6 - 6.0 normal Not Available [address], [address], 01/11/2025 12:23:13 05/10/20 25 05/11/2025 COMPR EHENS DOE METAB OLIC PANEL sodium 144 mmol/ L 136 - 145 normal Not Available [address], [address], 05/11/2025 10:28:19 05/10/2005/11/2025 COMPR EHENS DOE METAB OLIC PANEL potassium 4.4 mmol/ L 3.5 - 5.1 normal Not Available [address], [address], 05/11/2025 10:28:19 05/10/2005/11/2025 COMPR EHENS DOE METAB OLIC PANEL chloride 105 mmol/ L 98 - 107 normal Not Available [address], [address], 05/11/2025 10:28:05/10/2005/11/2025 COMPR EHENS DOE METAB OLIC PANEL glucose 90 mg/dL 74 - 106 normal Not Available [address], [address], 05/11/2025 10:28:05/10/2005/11/2025 COMPR EHENS DOE METAB OLIC PANEL carbon dioxide 30 mmol/ L 20 - 32 normal Not Available [address], [address], 05/11/2025 10:28:19 05/10/2005/11/2025 COMPR EHENS DOE METAB OLIC PANEL calcium 8.9 mg/dL 8.5 - 10.1 normal Not Available [address], [address], 05/11/2025 10:28:19 05/10/2005/11/2025 COMPR EHENS DOE METAB OLIC PANEL creatinine 0.89 mg/dL 0.60 - 1.00 normal Not Available [address], [address], 05/11/2025 10:28:19 05/10/2005/11/2025 COMPR EHENS DOE METAB OLIC PANEL eGFR 93 mL/mi n/1.7 3m2 >60 normal The eGFR is based on the CKD-E PI 2020 equat ion. To calcu late the new eGFR from a previ ous Creat inine or Cysta tin C resul t, go to https ://morena bartlett.mireya chao.o denzel/pr violet verasal s/kdo qi/gf r_cal culat or Not Available [address], [address], 05/11/2025 10:28:19 05/10/2005/11/2025 COMPR EHENS DOE METAB OLIC PANEL AST 9 U/L 15 - 37 low Not Available [address], [address], 05/11/2025 10:28:19 05/10/20 25 05/11/2025 COMPR EHENS DOE METAB OLIC PANEL ALT 14 U/L 14 - 59 normal Not Available [address], [address], 05/11/2025 10:28:19 05/10/2005/11/2025 COMPR EHENS DOE METAB OLIC PANEL alk phos 111 U/L 46 - 116 normal Not Available [address], [address], 05/11/2025 10:28:19 05/10/20 25 05/11/2025 COMPR EHENS DOE METAB OLIC PANEL albumin 4.3 g/dL 3.4 - 5.0 normal Not Available [address], [address], 05/11/2025 10:28:19 05/10/20 25 05/11/2025 COMPR EHENS DOE METAB OLIC PANEL protein, total 7.0 g/dL 6.4 - 8.2 normal Not Available [address], [address], 05/11/2025 10:28:19 05/10/20 25 05/11/2025 COMPR EHENS DOE METAB OLIC PANEL bilirubin, total 0.5 mg/dL 0.2 - 1.0 normal Not Available [address], [address], 05/11/2025 10:28:19 05/10/20 25 05/11/2025 COMPR EHENS DOE METAB OLIC PANEL urea nitrogen (BUN) 17 mg/dL 7 - 18 normal Not Available [address], [address], 05/11/2025 10:28:19 05/10/20 25 05/11/2025 PROLA CTIN prolactin 5.2 NG/mL Refer ence Range s Femal e aged 18-Ad ult Nonpr egnan t: 2.8-2 9.2 ng/mL Pregn ant: 9.7-2 08.5 ng/mL Post- menop ausal : 1.8-2 0.3 ng/mL Pregn jayna, lacta tion, and the admin istra tion of oral contr acept erum can incre ase prola ctin grover ntrat ions. Not Available [address], [address], 05/11/2025 10:43:37 05/10/20 25 05/11/2025 CBC (INCL UDES DIFF/ PLT) WBC 6.5 thous and/u L 4.0 - 9.8 normal Not Available [address], [address], 05/11/2025 10:49:07 05/10/20 25 05/11/2025 CBC (INCL UDES DIFF/ PLT) RBC 4.3 marcy on/uL 3.9 - 4.9 normal Not Available [address], [address], 05/11/2025 10:49:07 05/10/20 25 05/11/2025 CBC (INCL UDES DIFF/ PLT) hemoglobin 12.9 g/dL 11.8 - 14.8 normal Not Available [address], [address], 05/11/2025 10:49:07 05/10/20 25 05/11/2025 CBC (INCL UDES DIFF/ PLT) hematocrit 38.3 % 35.5 - 44.0 normal Not Available [address], [address], 05/11/2025 10:49:07 05/10/20 25 05/11/2025 CBC (INCL UDES DIFF/ PLT) MCV 89.5 fL 82.0 - 99.0 normal Not Available [address], [address], 05/11/2025 10:49:07 05/10/20 25 05/11/2025 CBC (INCL UDES DIFF/ PLT) MCH 30.1 pg 27.2 - 32.6 normal Not Available [address], [address], 05/11/2025 10:49:07 05/10/20 25 05/11/2025 CBC (INCL UDES DIFF/ PLT) MCHC 33.7 g/dL 31.5 - 35.5 normal Not Available [address], [address], 05/11/2025 10:49:07 05/10/20 25 05/11/2025 CBC (INCL UDES DIFF/ PLT) RDW-CV 13.2 % 11.5 - 14.5 normal Not Available [address], [address], 05/11/2025 10:49:07 05/10/20 25 05/11/2025 CBC (INCL UDES DIFF/ PLT) platelet 263 thous and/u L 140 - 350 normal Not Available [address], [address], 05/11/2025 10:49:07 05/10/2005/11/2025 CBC (INCL UDES DIFF/ PLT) MPV 11.2 fL 9.3 - 12.4 normal Not Available [address], [address], 05/11/2025 10:49:07 05/10/2005/11/2025 CBC (INCL UDES DIFF/ PLT) absolute neutrophil 3.71 thous and/u L 1.90 - 7.00 normal Not Available [address], [address], 05/11/2025 10:49:07 05/10/20 25 05/11/2025 CBC (INCL UDES DIFF/ PLT) absolute lymphocyte 1.94 thous and/u L 0.70 - 4.50 normal Not Available [address], [address], 05/11/2025 10:49:07 05/10/20 25 05/11/2025 CBC (INCL UDES DIFF/ PLT) absolute monocyte 0.60 thous and/u L 0.10 - 1.30 normal Not Available [address], [address], 05/11/2025 10:49:07 05/10/20 25 05/11/2025 CBC (INCL UDES DIFF/ PLT) absolute eosinophil 0.24 thous and/u L <0.70 normal Not Available [address], [address], 05/11/2025 10:49:07 05/10/20 25 05/11/2025 CBC (INCL UDES DIFF/ PLT) absolute basophil 0.05 thous and/u L <0.20 normal Not Available [address], [address], 05/11/2025 10:49:07 05/10/20 25 05/11/2025 CBC (INCL UDES DIFF/ PLT) absolute immature granulocyte 0.00 thous and/u L <0.03 normal Not Available [address], [address], 05/11/2025 10:49:07 05/10/20 25 05/11/2025 TSH W/ REFLE X TO FREE, T4 TSH 2.01 mIU/L 0.55 - 4.78 normal Refer ence Range Femal e aged 18-Ad ult: 0.55- 4.78 Pregn jayna Refer ence Range s First Trime ster 0.26- 2.66 Secon d Trime ster 0.55- 2.73 Third Trime ster 0.43- 2.91 Not Available [facility] [address] [place], [address], 05/11/2025 11:40:35 05/10/20 25 05/12/2025 CULTU RE, URINE , ROUTI NE culture, urine, routine SEE NOTE CULTU RE, URINE , ROUTI NE Micro Numbe r: [id number] Test Statu s: Final Speci men Sourc e: Urine Speci men Quali ty: Adequ ate Resul t: No Growt h Not Available [employer] [facility] [address] [place], [address], 05/12/2025 20:23:08 05/10/20 25 05/10/2025 pregn jayna test, urine HCG negati ve Not Available [address], [address], 05/10/2025 15:05:02 06/28/20 25 06/28/2025 pregn jayna test, urine HCG negati ve Not Available [address], [address], 06/28/2025 15:02:35 Result Notes None recorded. Problems Name Problem SNOMED Code Status Onset Date Resolution Date Notes Provider Name and Address Organization Details Recorded Time Family history of Hunting[place] on's chorea [id number] Completed Maternal grandfat her and multiple family member's on maternal side. Pt's mother was negative and was told patient did not need tested. 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 Procedures Surgical History Date Name Laterality Status Provider Name and Address Organization Details Recorded Time 02/04/20 Date of Last Pap Smear completed Lashae Chuaelviramaureen [facility] [employer] IV 04/09/2024 10:17:26 Remove tonsils and adenoids completed Lashaeronda Marin [facility] [employer] [facility] IV 04/09/2024 10:18:02 Imaging Results None recorded. Procedure Notes None recorded. Medical Equipment None Reported. Allergies Allergen ID Allergen Name Allergen Category Reaction Reaction Severity Criticality Documentation Date Start Date Code Code System Note Provider Name and Address Organization Details Recorded Time 039763 tree nut food Not available Not available Not available 01/28/2024 Leti jose, [facility] [employer] [facility] IV 4 09:33:58 995356 cigarette smoke environme nt Not available Not available Not available 01/28/2024 Leti Dale [facility], [facility] [employer] [facility] IV 4 09:33:58 308923 vortioxet ine hydrobrom stephanie medicatio n Not available Not available Not available 04/09/2024 45808 34 RxNorm Lashae Bulmaro hdez rebeca, [facility] [employer] [facility] IV 4 10:14:38 675800 doxycycli ne Not available nausea Not available high 08/03/20252024 3640 RxNorm Lashae hdez null, [facility] [employer] IV 14:39:42 139644 Adhesive agent (substanc e) environme nt,medica tion hives Not available high 08/03/20252009 51397 0007 SNOMED Rips skin off Lashae hdez null, [facility] [employer] IV 14:39:45 786634 vortioxet ine medicatio n other Not available low 08/03/20252019 04914 99 RxNorm Karma telli x, itchy Lashae hdez null, [facility] [facility] IV 14:39:49 Medications Name Sig Start Date Stop Date Status Note LastModified by Organization Details LastModified Time promethazin e-DM 6.25 mg-15 mg/5 mL oral syrup TAKE 5 ML BY MOUTH EVERY 4 HOURS NEEDED FOR COUGH 05/09 completed Not Available Not Available Not Available venlafaxine ER 75 mg capsule,ext ended release 24 hr TAKE 1 CAPSULE BY MOUTH EVERY DAY 04/09 completed Not Available Not Available Not Available azithromyci n 250 mg tablet TAKE 2 TABLETS BY MOUTH TODAY, THEN TAKE 1 TABLET DAILY FOR 4 DAYS DIRECTED 01/10 completed Not Available Not Available Not Available ibuprofen 800 mg tablet TAKE 1 TAB BY MOUTH EVERY 8 HOURS NEEDED FOR PAIN MAY TAKE UP TO EVERY 6 HOURS FOR FIRST 2 DAYS 01/10 completed Not Available Not Available Not Available benzonatate 200 mg capsule TAKE 1 CAPSULE BY MOUTH THREE TIMES A DAY NEEDED FOR COUGH 05/09 completed Not Available Not Available Not Available pyridoxine (vitamin B6) 25 mg tablet Take 1 tablet 3 times a day by oral route as directed. 06/09 completed Not Available Not Available Not Available prednisone 20 mg tablet TAKE 1 TABLET BY MOUTH TWICE A DAY FOR 5 DAYS 05/09 completed Not Available Not Available Not Available metronidazo le 500 mg tablet Take 1 tablet every 12 hours by oral route for 7 days. 04/09 completed Not Available Not Available Not Available sulfamethox azole 800 mg-trimetho prim 160 mg tablet TAKE 1 TABLET BY MOUTH EVERY 12 HOURS FOR 7 DAYS 01/27 completed Not Available Not Available Not Available triamcinolo ne acetonide 0.1 % topical cream APPLY SPARINGLY TWICE A DAY TO THE AFFECTED AREA. RUB CREAM IN UNTIL INVISIBLE . active Not Available Not Available No t Available Nexium 20 mg capsule,del ayed release Take 1 capsule every day by oral route. 06/17 completed Not Available Not Available Not Available alprazolam 0.5 mg tablet TAKE 1 TABLET BY MOUTH EVERY DAY NEEDED 04/09 completed Not Available Not Available Not Available amoxicillin 875 mg tablet Take 1 tablet every 12 hours by oral route for 7 days. 04/09 completed Not Available Not Available Not Available famotidine 20 mg tablet Take 1 tablet twice a day by oral route. 08/06 completed Not Available Not Available Not Available pantoprazol e 40 mg tablet,margoth yed release TAKE 1 TABLET BY MOUTH EVERY DAY active Not Available Not Available No t Available ferrous sulfate 325 mg (65 mg iron) tablet TAKE 1 TABLET BY MOUTH TWICE A DAY 01/10 completed Not Available Not Available Not Available Tylenol 325 mg tablet Take 2 tablets every 6 hours by oral route. 02/04 completed Not Available Not Available Not Available albuterol sulfate HFA 90 mcg/actuati on aerosol inhaler TAKE 2 PUFFS BY MOUTH EVERY 4 HOURS NEEDED FOR WHEEZE 02/04 completed Not Available Not Available Not Available ferrous sulfate 325 mg (65 mg iron) tablet,margoth yed release TAKE 1 TABLET BY MOUTH DAILY WITH BREAKFAST . 1 TABLET/DA Y WITH 4 OUNCES OF ORANGE JUICE, active Not Available Not Available No t Available Unisom (doxylamine ) 25 mg tablet Take 1/2 to 1 tablet at bedtime. 06/09 completed Not Available Not Available Not Available amoxicillin 875 mg-potassiu m clavulanate 125 mg tablet TAKE 1 TABLET BY MOUTH TWICE A DAY FOR 10 DAYS 06/28 completed Not Available Not Available Not Available Adult Low Dose Aspirin 81 mg tablet,margoth yed release Take 1 tablet every day by oral route. 08/06 completed Not Available Not Available Not Available escitalopra m 10 mg tablet TAKE 1 TABLET BY MOUTH EVERY DAY 05/10 completed Not Available Not Available Not Available albuterol sulfate 11/29 completed Not Available Not Available Not Available Claritin 02/04 completed Not Available Not Available Not Available Stool Softener 02/04 completed Not Available Not Available Not Available 02/04 completed Not Available Not Available Not Available Prilosec OTC 06/09 completed Not Available Not Available Not Available Nuvessa 1.3 % (65 mg/5 gram) vaginal gel 1 applicato r full vaginally x 1 dose 04/09 completed Not Available Not Available Not Available Slynd 4 mg (28) tablet Take 1 tablet every day by oral route. active Not Available Not Available No t Available Nextstellis 3 mg-14.2 mg (28) tablet Take 1 tablet every day by oral route. 06/28 completed Not Available Not Available Not Available Zurzuvae 25 mg capsule Take 2 capsules every day by oral route at bedtime for 14 days, for postpartu m depressio n. 05/10 completed Not Available Not Available Not Available Vitals Date Recorded Body height Body mass index (BMI) Body weight Systolic And Diastolic Provider Name and Address Organization Details Last Updated DateTime 02/04/2025 162.56 cm 30.6 kg/m2 93565.16 g 110/60 mm[Hg] [employer] [facility] 02/04/2025 16:31:26 Date Recorded Body height Body mass index (BMI) Body weight Systolic And Diastolic Provider Name and Address Organization Details Last Updated DateTime 02/07/2025 162.56 cm 30.9 kg/m2 18086.35 g 112/60 mm[Hg] [facility] [employer] [facility] 02/07/2025 14:48:26 Date Recorded Body height Body mass index (BMI) Body weight Systolic And Diastolic Provider Name and Address Organization Details Last Updated DateTime 05/10/2025 162.56 cm 32.4 kg/m2 49009.24 g 100/66 mm[Hg] Stephanie Malloyman [employer] IV 05/10/2025 14:34:05 Date Recorded Body height Body mass index (BMI) Body weight Systolic And Diastolic Provider Name and Address Organization Details Last Updated DateTime 06/28/2025 162.56 cm 32.7 kg/m2 05026.99 g 100/60 mm[Hg] Kayli Painting [facility] [employer] IV 06/28/2025 14:57:23 Date Recorded Body height Body mass index (BMI) Body weight Systolic And Diastolic Provider Name and Address Organization Details Last Updated DateTime 08/03/2025 162.56 cm 31.1 kg/m2 97804.22 g 112/60 mm[Hg] Lashae Tania [facility] [facility] 08/03/2025 14:44:36 Social History Question Answer Notes LastModified by Organizat ion Details LastModified Time Tobacco Smoking Status Never Smoker Leti Chito jose, [facility] [employer] [facility] 01/28/2024 09:33:59 If You Are , What Was Your Level Of Alcohol Consumption Prior To ? None Information not available 05/18/2024 How Many Years Have You Consumed Alcohol? 2 Information not available 06/09/2024 Are You Blind Or Do You Have Difficulty Seeing? No [email or web address] Information not available 01/28/2024 Are You Deaf Or Do You Have Serious Difficulty Hearing? No [email or web address] Information not available 01/28/2024 What Type Of Diet Are You Following? REGULAR [email or web address] Information not available 01/28/2024 What Is The Highest Grade Or Level Of School You Have Completed Or The Highest Degree You Have Received? [id number] [email or web address] Information not available 01/28/2024 How Many Children Do You Have? 1 Information not available 01/10/2025 Are There Any Occupational Health Risks Where You Work? No [email or web address] Information not available 01/28/2024 What Is Your Relationship Status? Single [email or web address] Information not available 01/28/2024 Are You Sexually Active? Yes [email or web address] Information not available 01/28/2024 Sex: Female Functional Status Question Answer Note LastModified by Organizat ion Details LastModified Time Do you use any illicit or recreational drugs? No [email or web address] Information not available 01/28/2024 Do you or have you ever used any other forms of tobacco or nicotine? No [email or web address] Information not available 01/28/2024 What is your level of alcohol consumption? None Information not available 05/18/2024 Are you currently employed? 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 Occasional [email or web address] Information not available 01/28/2024 Mental Status None recorded. Family History Relationship Description Onset Age of this Age Resolved Age Notes LastModified by Organization Details LastModified Time Paternal Grandmother Ulcerative colitis [email or web address] Not available 2023 09:33:59 Mother Hypercholest [email or web address] Not available 2023 09:33:59 Mother Hypertensive disorder Not available 2023 09:33:59 Mother Diabetes mellitus [email or web address] Not available 2023 09:33:59 Maternal Grandmother Malignant neoplasm of breast [email or web address] Not available 2023 09:33:59 Maternal Grandfather Malignant neoplasm of colon [email or web address] Not available 2023 09:33:59 Medical History Condition Response Other Cancer N High Blood Pressure N Colon Cancer N Cytomegalovirus N Hyperthyroidism N MRSA N Breast Cancer N Herpes (HSV) N Blood Transfusion N Lung Cancer N Depression N Hypothyroidism N Incontinence N Panic Attacks N Neurological Disorder N Deep Vein Thrombosis N Anxiety Disorder N Autoimmune disease N Arthritis N Tuberculosis/Positive PPD N Shingles N Polycystic Ovarian Syndrome Y Infertility N Cervical Cancer N Hematuria N Chlamydia N Stroke N Varicosities N Seasonal allergies N Crohn's Disease N Alzheimer's/Dementia N COPD/Emphysema N Endometriosis N HPV/Genital Warts N IBS (Irritable Bowel Syndrome) N History of Abnormal Pap N High Cholesterol N Liver Disease N Kidney Infection N Fibromyalgia N Ulcer N Kidney Disease N HIV N Gallbladder disease N Sickle Cell Disease/Trait N Von Willebrand disease N ADD/ADHD N Eating Disorder N Anemia N Diabetes Mellitus (non-insulin dependent ) N Multiple Sclerosis N Ovarian Problems N Gonorrhea N Frequent Urinary Tract infections N Osteopenia N Headaches/migraines N GERD (reflux) Y Ovarian Cancer N Diabetes (insulin dependent) N Seizures/Epilepsy N Breast Problems N Fibroids N Asthma N Heart Attack N Lupus N Endometrial Cancer N Rubella N Blood Clotting Disorder N Bipolar Disorder N Diabetes Mellitus (during ) N Ulcerative Colitis N Hepatitis N Heart Disease N Pulmonary Embolism N RPR N Chicken Pox N Osteoporosis N Gynecological History Statement/Question Response Flow Moderate Date of last HPV Date of LMP 06/23/2025 HPV Vaccine N Duration of Flow (days) 6 Most Recent Mammogram Current Control Method BCPs Age at Menarche 13 Date of Last Colonoscopy Most Recent Bone Density Frequency of Cycle (Q days) Irregular Date of Last Pap Smear 02/04/2024 Obstetrics History GPAL:G 1 P 1 0 0 1 Type Value Full Term 1 Living 1 Total 1 Past Encounters Encounter ID Performer Location Encounter Start Date Encounter Closed Date Diagnosis/Indication Diagnosis SNOMED-CT Code Diagnosis ICD10 Code Diagnosis IMO Codes Diagnosis Note [id number] ERICH SANDHU [address] [address] 01/28/2024 09:22:19 01/28/2024 14:18:49 Abnormal uterine bleeding 0575488529 9100 N93.9 The patient will undergo blood work to check CBC, thyroid levels, insulin resistance , and testostero ne levels. She will also have an ultrasound to evaluate for any cysts or fibroids that may be causing her symptoms. Urine culture will also be performed to rule out any infection. Dysuria 77856301 R30.0 The patient will be tested for bacterial vaginosis, yeast infection, gonorrhea, chlamydia, and trichomona s, as these conditions can cause dysuria and pelvic pain. Will also be tested for urine culture. If necessary, further evaluation may be warranted to assess for a gastrointe stinal or genitourin mehnaz issue. Painful ur ging to urinate 78037298 R30.0 Pain in pelvis 99943821 R10.2 The patient will undergo an evaluation for PCOS, including blood work and an ultrasound . If all tests come back negative, meeting with MD for a laparoscop ic procedure to diagnose endometrio sis may be necessary. If endometrio sis is confirmed, appropriat e treatment options will be discussed. [id number] ERICH SANDHU [facility] [address] [place] [address] 02/04/2024 09:12:03 02/04/2024 15:47:33 Pain in pelvis 74802878 R10.2 The patient's pain has improved after treating the UTI and bacterial vaginosis, indicating that these infections were likely the primary cause. The patient should monitor her pain levels and return for further evaluation if the pain recurs or worsens. An ultrasound may be performed to assess for the presence of ovarian cysts or other potential causes of pain. If all tests come back negative, meeting with MD for a laparoscop ic procedure to diagnose endometrio sis may be necessary. If endometrio sis is confirmed, appropriat e treatment options will be discussed. Screening for malignant neoplasm of cervix 649978716 Z12.4 ASCCP guidelines reviewed with pt. Pap collected and sent. Further POC pending lab result review. Pt states understand ing of POC. Polycystic ovary syndrome 676163954 E28.2 The patient's irregular periods and ultrasound findings are consistent with a diagnosis of PCOS. The patient prefers to pursue lifestyle changes and nutritiona l modificati ons as the first line of treatment, rather than hormonal control. The patient should follow up in three months to assess the effectiven ess of these changes and to ensure she has a period at least every three months. Supplement s such as berberine and mikal-inosit ol may be considered to help improve the patient's symptoms. [id number] ERICH SANDHU [facility] [address] [place] [address] 04/09/2024 10:06:46 04/09/2024 12:22:40 Polycystic ovaries 54847297 E28.2 L68.0 Pt presents for PCOS work up follow up. -Patient has been working on lifestyle changes.-L MP: 03/18/2024 - Has not started supplement s yet due to losing paper given at last appointmen t. Discussed that patient can get supplement NovImmune that has the PCOS supplement s in 1 [employer] in and can be purchased on [employer]. Patient states she will look into it.-Overal l doing well. Will continue to track cycles and start supplement s. Is not interested in HMB at this time.-Will RTC PRN, if no cycle in 3 months and/or WWE [id number] VALENTINO HOLDER NP [facility] h [address] [place] [address] 05/18/2024 13:59:58 05/24/2024 13:25:24 detection examination 54419789 Z32.00 Pt presents today for a confirmati on of visit. has not been previously confirmed at another healthcare facility. Pt voiced that she is happy about this . TVUS today showed:IUP with Cardiac Activity. IAM based on this US. IAM consistent with LMP. IAM: 12/23/24Gest ational Age: 8w 5dFHT: 168 bpm First trimester teaching provided.- --Foods and activities to avoid---We ight gain recommenda tions based on BMI---Safe meds---Rufino entation to practice-- -Delivery locations- --MINA visit progressio n---Prenat al vitamins daily---To xoplasmosi s precaution s reviewed-- -[facility] Guide; What to expect on your maternity journey-- -S/S of SAB reviewed and when to seek care Discussed changing positions slowly. Make sure she is drinking plenty of water daily. Eat small frequent meals throughout the day. If that feeling of passing out gets worse, then please reach back out. RTC for 1st OB, Labs, and Physical.R TC - 3wks --BMI: 30 [id number] RICHELLE LALA, VETERINARY SURGERY TECHNICIAN [facility] [address] [place] [address] 06/09/2024 13:47:13 06/09/2024 15:24:59 Gestation period, 11 weeks 91495827 Z3A.11 Additional diagnosis detail: 11 weeks gestation of screening 2437 76934 Z36.89 Additional diagnosis detail: Encounter for screening Normal 7430912 2 Z34.01 Pt comes in today for a New/First OB visit.Gest ation: 11w 6dEDD: 12/23/2024 -- PMH: Anxiety, Depression - No meds currently, Asthma, hital hernia-- Medication s: Taking daily PNV, albuterol, Will switch from nexium to pepcid.-- Previous OB History: 1st - - Mom/Sister s with hx of Pre-Eclamp margaret: Yes-- History of Genital HSV: Denies-- Genetic Questions in OB Episode Done-- Accepts [employer]. Would like to know gender. Discussed logging on to the [employer] portal to find Gender Results-- PAP up to date --BMI at Confirmati on: 30 -- Low dose Aspirin : 81 mg/day prophylaxi s is recommende d in women at high risk of preeclamps ia. Recommende d to be initiated at 12 weeks gestation. Risk Factors:(t wo present)Pr imiparity, Mother or sister with preeclamps ia -- First Trimester Diabetes Screening: Recommende d. Screened with: hemoglobin A1CBMI >25 with one or more Risk Factors:-F irst-degre e Relative with DM POC-- NOB labs done today-- Accepts [employer]ITY-- PAP Up to Date-- Low dose aspirin recommende d-- Pre-Pregna ncy BMI: 29.4-- RTC 4 weeks Guide: Given and reviewed. Toxoplasmo sis precaution s reviewed. Reviewed office visit schedule during . Reviewed Quickening and normal FHTs. Carrier de tection, molecular genetics 0494127 Z14.8 Hiatal hernia 71503895 K 44.9 Family his tory of De Baca's chorea 145614268 Z82.0 Maternal side of family. Maternal grandfathe r, patient's mother is Negative. Depression screening 171 551162 Z13.31 PHQ9: 3. Pt educated on normal scoring, and discussed depression precaution s and when to notify HCP/go to ER. [id number] ERICH SANDHU [address] [address] 06/17/2024 13:50:14 06/17/2024 15:17:30 Lower abdominal pain 31566958 R10.30 Gestation period, 13 weeks 29452795 Z3A.13 Additional diagnosis detail: 13 weeks gestation of Normal 4109506 2 Z34.90 Pt is here for a MINA appointmen t. She is taking vitamins. She has no complaints or questions. Has not felt movement yet. Denies vaginal bleeding, abdominal cramps, N/V, contractio ns, or LOF. Denies headache, vision changes, swelling of hands or face, and epigastric pain. Discussed PTL and precaution s given. There are no identifiab le risk factors for pre-term labor. Discussed with pt that I do not delivery babies. Recommende d pt see a Delivery Provider next visit. Vaginal odor 934550229 N 89.8 Pt educated on exam findings, and discussed POC. Vaginal cx collected and sent. Discussed use of boric acid suppositor ies to help alleviate symptoms. 1 vaginal suppositor y at bedtime 3 nights in a row. Pt advised to avoid fragrant soaps/laun dry detergents , use of baking soda soaks, having partner change soaps, etc. Further POC pending lab result review. Pain in fe male genitalia 655058171 N94.9 Additional diagnosis detail: Round ligament pain [id number] VALENTINO HOLDER NP [facility] [address] [place] [address] 06/29/2024 14:11:55 06/30/2024 14:09:25 Vaginal discharge 018639751 N89.8 39067 Pt c/o pain with urination, vaginal irritation , green, clumpy discharge. Was previously tested & says everything was negative. She's saying that she still is having symptoms. POCobtain a urine specimenob tain vaginal swabWill tx as needed per results. Urinary sy stem finding 744682983 R39.9 3547131 [id number] ERICH SANDHU [facility] [address] [place] [address] 07/09/2024 13:36:38 07/12/2024 10:41:00 Normal 47966998 Z34.02 4470000 Pt is here for a MINA [facility] t. She is taking vitamins. She has no complaints or questions. Has felt movement Denies vaginal bleeding, abdominal cramps, N/V, contractio ns, or LOF. Denies headache, vision changes, swelling of hands or face, and epigastric pain. Discussed PTL and precaution s given. There are no identifiab le risk factors for pre-term labor. Discussed with pt that I do not delivery babies. Recommende d pt see a Delivery Provider next visit. Gestation period, 16 weeks 92368490 Z3A.16 2022651 Low back p ain in 0659524574 106 O26.892 M54.50 52274589 [id number] VALENTINO HOLDER NP [facility] [address] [place] [address] 08/06/2024 15:31:25 08/06/2024 17:27:21 screening for malformation 163087696 Z36.3 [id number] Pt is here for a MINA appointmen t. She is taking vitamins. She has no complaints or questions. Reports feeling movement. Denies vaginal bleeding, abdominal cramps, N/V, contractio ns, or LOF. Denies headache, vision changes, swelling of hands or face, and epigastric pain. Discussed PTL and precaution s given. There are no identifiab le risk factors for pre-term labor. Reminded pt that I do not delivery babies.Rec ommended to see delivery provider next visit.RTC - 4 wks. Normal 7698421 2 Z34.92 74471866 screening 2437 79293 Z36.86 Gestation period, 20 weeks 18908623 Z3A.20 7148115 Screening for disorder 623802242 Z36.0 Anemia of 2733 2003 O99.019 78926596 [id number] ERICH SANDHU [facility] [address] [place] [address] 09/02/2024 10:56:29 09/02/2024 12:46:00 Normal 01977992 Z34.92 23779397 Pt is here for a MINA appointmen t. She is taking vitamins. She has no complaints or questions. Has felt movement Denies vaginal bleeding, abdominal cramps, N/V, contractio ns, or LOF. Denies headache, vision changes, swelling of hands or face, and epigastric pain. Discussed PTL and precaution s given. There are no identifiab le risk factors for pre-term labor. Discussed with pt that I do not deliver babies. RTC in 4 weeks for 3T labs and GTT. Gestation period, 24 weeks 967526207 Z3A.24 0556260 Depression screening 171 354567 Z13.31 PHQ9: 3. Pt educated on normal scoring, and discussed depression precaution s and when to notify HCP/go to ER. Near syncope 609576125 R 55 430856 [id number] ERICH SANDHU [facility] [address] [place] [address] 09/30/2024 10:45:06 09/30/2024 16:27:45 Gestation period, 28 weeks 03881674 Z3A.28 2022840 Normal 5700471 2 Z34.83 8937826 Pt is here for a MINA appointmen t. She is taking vitamins. She has no complaints or questions. Denies vaginal bleeding, abdominal cramps, N/V, contractio ns, and LOF. Denies headache, vision changes, swelling of hands or face, and epigastric pain. Reports feeling movement. Discussed Movement Counts. Education provided on Tdap, COVID, RSV and Flu vaccineRho Bob: Not neededPlan clover to deliver @ Unsure GBS: @36 weeks Discussed PTL and precaution s given. There are no identifiab le risk factors for pre-term labor. screening 2436 Z36.89 [id number] RICHELLE LALA, ERICH [facility] [address] [place] [address] 10/13/2024 10:02:04 10/13/2024 12:53:19 Gestation period, 29 weeks 04614843 Z3A.29 8882791 Normal 9754203 2 Z34.83 1131576 Pt is here for a MINA appointmen t. She is taking vitamins. She has no complaints or questions. Denies vaginal bleeding, abdominal cramps, N/V, contractio ns, and LOF. Denies headache, vision changes, swelling of hands or face, and epigastric pain. Reports feeling movement. Discussed Movement Counts. Planning to deliver @ Unsure GBS: @36 weeks Discussed PTL and precaution s given. There are no identifiab le risk factors for pre-term labor. screening 2436 Z36.89 [id number] Nirmala omalley CNM [facility] h [address] [place] [address] 10/27/2024 12:42:06 10/27/2024 13:20:02 Normal 84730876 Z34.03 5374332 Gestation period, 31 weeks 22616537 Z3A.31 0147704 [id number] MARYJO SORENSEN [facility] [address] [place] [address] 11/11/2024 13:58:12 11/15/2024 11:42:32 Gestation period, 34 weeks 34710959 Z3A.34 4301708 Normal 5541294 2 Z34.03 [id number] Pt is here for a MINA appointdipika payton. She is taking vitamins. She has no complaints or questions. Denies vaginal bleeding, abdominal cramps, N/V, contractio ns, and LOF. Denies headache, vision changes, swelling of hands or face, and epigastric pain. Reports feeling movement. Discussed Movement Counts. RhoGam: Not neededDisc ussed contracept ion options. Discussed Progestero ne only contracept doe methods if patient desires to breastfeed . Pt undecided at this timeGBS: @36 weeks Discussed PTL and precaution s given. There are no identifiab le risk factors for pre-term labor. <37Follow up in L&D if experienci ng decreased movement, leaking fluid, or regular uterine contractio ns increasing in frequency and/or intensity. [id number] JESS DAO, [facility] [address] [place] [address] 11/29/2024 15:41:54 11/30/2024 15:46:40 Normal 04040982 Z34.03 [id number] Gestation period, 36 weeks 84748367 Z3A.36 5231926 Bacterial disease screening 427272219 Z36.85 718617 [id number] ERICH SANDHU [facility] [address] [place] [address] 12/01/2024 11:57:24 12/01/2024 14:30:15 Normal 83553654 Z34.03 8230471 Pt is here for a MINA appointdipika payton. She is taking vitamins. She has no complaints or questions. Denies vaginal bleeding, abdominal cramps, N/V, contractio ns, and LOF. Denies headache, vision changes, swelling of hands or face, and epigastric pain. Reports feeling movement. Discussed Movement Counts. Planning to deliver @ Unsure GBS: @36 weeks Discussed PTL and precaution s given. There are no identifiab le risk factors for pre-term labor. Gestation period, 36 weeks 04533237 Z3A.36 8796683 Swelling o f lower limb 788234376 M79.89 [id number] Nirmala Garg is, [facility] [address] [place] [address] 12/08/2024 14:56:00 12/08/2024 15:49:46 Gestation period, 37 weeks 22311096 Z3A.37 4619108 Normal 1230960 2 Z34.01 0217178 [id number] Nirmala Garg is, [facility] h [address] [place] [address] 12/14/2024 14:59:03 12/14/2024 16:51:45 Normal 95563547 Z34.03 4014497 Gestation period, 38 weeks 94511103 Z3A.38 3082274 [id number] RICHELLE LALA, [facility] [address] [place] [address] 01/10/2025 14:52:52 01/11/2025 14:01:47 state 13520890 Z39.2 -- Baby Blues & Depression discussed. Pt denies any feelings of depression , frequent crying, or feelings of harming self or others. Educated on the warning signs of depression and when to seek medical attention. -- PNV while at reproducti ve age for benefits in early . -- Continue light activity & can start light exercise such as walking.-- Discussed no vaginal penetratio n and no tampons until 6 weeks PP.-- Discussed benefits of waiting minimum 12-18 months between pregnancie s to reduce negative outcomes.- - Lochia: Still bleeding, No odor. Bleeding precaution s reviewed, when to call HCP or go to ER. Pt voices understand ing.-- Uterus: Involuted- - Bowl and Bladder: Reports no issues. Discussed fiber intake, staying hydrated, and stool softeners PRN.-- Perineum: Denies redness, edema, or discharge. Stitches intact, patient has discomfort . Discussed Perineal care witch vanessa and dermoplast PRN.-- Hemorrhoid s: Denies. Discussed Witch Vanessa pads, hemorrhoid balm, and stool softener PRN.-- Breasts: Pt is breast feeding. Denies breast pain, warmth, or firmness. Encouraged continuing breastfeed ing. Counseled regarding benefits for mother and baby.-- Briefly reviewed contracept doe options & encouraged to consider preferred option for next visit.-- Safe Sleeping Instructio ns per AAP: STRONGLY ADVISED against cosleeping with infants. Infants should always sleep: on their backs, on firm surfaces, on clean surfaces, in the absence of (secondhan d) smoke, under light (comfortab le) blanketing , and their heads should never be covered. Avoid objects in the crib that could present hazard to .-- Pre-Eclamp margaret S/S reviewed in detailed. Cautioned pt to be seen right away in office or at hospital if ARELLANO, visual changes (floaters, narrowing, and/or shortening of vision), RUQ/epigas tric pain). If checking BP's at home - target range reviwed - 150/90 go to hospital for evaluation .--Start thinking about contracept ion: Does not want control, states her body does not do well with contracept ion. - RTO in 4 weeks for full physical exam Depression screening 171 360609 Z13.31 EPDS: Pt educated on normal EPDS scoring, and discussed depression precaution s and when to notify HCP/go to ER. Frequent headache 693212 003 R51.9 75952490 [id number] Floridalma Pandey CNM [facility] [address] [address] 02/04/2025 16:21:10 02/07/2025 14:38:44 depression 80788267 F53.0 44343 - Feels overall happy about motherhood , denies neg thoughts toward - previously felt suicidal ideas but denies those today. Denies thoughts of harming others.- Encouraged healthy lifestyle, exercise- Recommend establishi ng care with therapist, pt open to trying but wants to try SSRI first.- Discussed options for SSRIs, bupropion, and others.- Discussed SSRIs as most widely prescribed first line.- Initial side effects (GI, ARELLANO, sleep changes, initial mood lowering before increasing , sexual dysfunctio n), and efficacy reached within 4-6 wks.- Pt open to trying SSRI.- rx for lexapro given, discussed potential to increase dose over time.- Contracted for safety, will seek immediate medical care if develops SI/HI/AVH- F/u on Friday re-evaluat ion [id number] Floridalma Pandey, TONIE [facility] [place] [address] [place] [address] 02/07/2025 14:30:53 02/07/2025 15:07:45 state 47602362 Z39.2 depression 58 966337 F53.0 49543 See Screening Section for EPDS Questionna andre ResultEPDS score = 6.Pt was unable to take lexapro d/t side effects.Wi ll try zurzuvae - cautioned of [employer] depressant effects.F/ u in 2 weeks after treatment completion s [id number] RICHELLE LALA, VETERINARY SURGERY TECHNICIAN [facility] [address] [place] [address] 05/10/2025 14:15:20 05/11/2025 11:15:37 Dysuria 02680710 R30.0 15475 The patient experience d dysuria, which has since resolved. A urine dipstick test was negative, but a urine culture has been sent to rule out a urinary tract infection. If the culture is positive, appropriat e antibiotic therapy will be initiated. Dizziness 970861989 R42 056825 The patient reports dizziness associated with bradycardi a, with episodes of her heart rate dropping to 50 bpm. A referral to a cardiologi st is recommende d to investigat e potential causes such as POTS syndrome or other cardiovasc ular issues. Monitoring of heart rate and blood pressure is advised. Lab work today also discussed making appointmen t with PCP to see if any other underlying conditions are causing her symptoms. Bradycardia [id number] .1 [id number] The patient experience s bradycardi a with heart rate dropping to 50 bpm, causing dizziness and weakness. A cardiology referral is warranted to explore underlying causes to see if cardiovasc ular conditions are present. Initial pr escription of oral contraception [id number] Z30.794 [id number] The patient is seeking an initial prescripti on for oral contracept ion to manage her Polycystic Ovary Syndrome (PCOS) and protect her uterine lining. A prescripti on for Nextstelli s, a combinatio n of estrogen and progestero ne, will be provided pending a negative test. Polycystic ovary syndrome [id number] E28.2 [id number] The patient has a history of Polycystic Ovary Syndrome (PCOS) and is not currently on control. She has not had a menstrual period since January. Oral contracept ion is recommende d to manage PCOS symptoms and reduce the risk of uterine cancer. [id number] RICHELLE LALA VETERINARY SURGERY TECHNICIAN [address] [address] 06/28/2025 14:40:24 06/28/2025 16:10:52 Uses contraception [id number] Z30.42 [id number] -- Discussed options including OCPs, NuvaRing, Nexplanon, hormonal and copper IUDs. Discussed risks, efficacy, non contracept doe benefits, and side effects of each option, including risk of VTE with hormonal contracept ion and uterine perforatio n, expulsion, infection with IUD.--Disc ussed that contracept ion will not protect against STI's. Encourged Condom use. Discussed the various types of Infections and STIs, related symptoms and the potential consequenc es (including effects on fertility) of STI. Reviewed ways to limit exposure and prevention techniques .--UPT: Negative-- Will trial Slynd, sample provided. Will f/u in 1 month for re-evaluat ion. [id number] ERICH SANDHU [address] [place] [address] 08/03/2025 14:20:12 08/03/2025 15:45:49 Break-through bleeding [id number] N92.1 [id number] -- Discussed options including OCPs, NuvaRing, Nexplanon, hormonal and copper IUDs. Discussed risks, efficacy, non contracept doe benefits, and side effects of each option, including risk of VTE with hormonal contracept ion and uterine perforatio n, expulsion, infection with IUD.--Disc ussed that contracept ion will not protect against STI's. Encourged Condom use. Discussed the various types of Infections and STIs, related symptoms and the potential consequenc es (including effects on fertility) of STI. Reviewed ways to limit exposure and prevention techniques . -- Will trial a second pack of Slynd, sample provided. Will f/u in 1 month for re-evaluat ion. Health Concerns Section Related Observation LastModified by Organization Detai ls LastModified Time None Recorded Concern Status LastModified by Organization Details LastModified Time None Recorded Advance Directives Directive None Recorded Payers Insurance Date Sequence Insurance Name Policy Number Policy Crespo Covered Member ID Crespo Member ID Guarantor Name 07/31/2025 1 [employer] [place] - DOS ON OR AFTER 2020 (MEDICAID REPLACEMENT - HMO) Cameronkahlil Magaña [id number] Cameron Gómez Notes Date Note Type Note Provider Name and Address Organization Details Recorded Time 02/04/2025 text/html ROS as noted in the HPI Cameron is here for depressionpatient delivery 12/19/2024, , bottle feedingpatient filled out EPD's score 17 Floridalma Pandey CNM [facility] [place], [address], [facility] [employer] IV 02/07/2025 11:53:00 02/07/2025 text/html ROS as noted in the HPI Cameron is here for follow/up visitpatient scored high on EPDs last visitpatient is currently taking escitalopram 10 mgpatient EPD's score today was a 7patient state she is doing well today Floridalma Pandey CNM [facility] [place], [address], [facility] [employer] 02/07/2025 15:07:40 05/10/2025 text/html Lower Urinary Tr act Symptoms (LUTS)Reported by PatientHPIFor severity, patient reportspainless. For context, patient reportsdenies excessive fluid intake,denies excessive caffeine intake,no dyspareunia, anddenies new medication treatment.ROS as noted in the HPI The patient is a 24-year-old female presenting with dysuria, dizziness, and for an initial prescription of oral contraception. The patient reports experiencing dysuria, characterized by burning during urination, which has since resolved. She suspects a urinary tract infection, although a urine dipstick test was negative. A urine culture has been sent for further evaluation. The patient has a history of dizziness and bradycardia, with episodes of her heart rate dropping to 50 bpm, causing weakness and dizziness. These symptoms were noted during her and have persisted . She has experienced episodes of syncope, including one where she dropped her child due to sudden weakness. The patient has a history of Polycystic Ovary Syndrome (PCOS) and is not currently on control. She has not had a menstrual period since January and is not . The patient is seeking an initial prescription for oral contraception to manage her PCOS and protect her uterine lining. RICHELLE LALA, ERICH [facility] [place], [address], [facility] [employer] IV 05/10/2025 18:51:40 06/28/2025 text/html ROS as noted in the HPI Cameron is a 24 y/o female here for control consult. pt was previously taking control pills (nextellis) and said it was changing her moods way too much and making her angry. pt still wants control but wants to discuss other options and see if she can start another control that doesn't really affect her mood. pt has no other concerns. ERICH SANDHU [address] [place] [address], [place], [address], [facility] [employer] 06/28/2025 15:16:23 08/03/2025 text/html ROS as noted in the HPI Cameron is a 24 yo female who presents 1 month follow up on her Slynd BCP. She states she has been spotting for 3 weeks with no actual period and would like to discuss this. Denies missing any pills. Denies any vaginitis s/sx at this time. 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 Pt's mother was negative and was told patient did not need tested. Iam Calculation Initial Iam Date Initial Exam Date Initial Exam Provider Initial Ultrasound Date Last Menstrual Period Date Ultra Sound Weeks Gestation 12/23/2024 06/09/2024 03/18/2024 0 Eighteen To Twenty Week Iam Update Ultra Sound Date Fundal Height At Umbil Quickening Date Ultra Sound Latest Weeks Gestation Final Iam Confirmed By Final Iam Confirmed Date Final Iam Date Ultra Sound Latest Days Gestation 0 12/23/19 25 0 Pre-ramin Flowsheet Flowsheet Date 06/09/2024 Rodriguez Score Blood Edema Fundus Height Fundus Units Glucose Ketones Leukocytes Nitrite Labor Signs Protein Cervic Dilation Cervic Effacement Cervic Station none none none neg Type Weight in lbs Pre/Post Dialysis Refused With clothes 171.880299714139 BP Diastolic BP Location Tested BP Systolic BP Type 68 118 sitting Fetus Heart Rate Present A 167 Present Fetus Movement A No Comments 1st OB. NOB and unity today. Pap UTD. Confirmation BMI 29.4. Pt has hiatal hernia, was taking Nexium. Will switch to pepcid BID. Will start LDASA due to risk factors. All questions answered to fullest extent. Precautions reviewed. RTC in 4 weeks. Flowsheet Date 06/17/2024 Rodriguez Score Blood Edema Fundus Height Fundus Units Glucose Ketones Leukocytes Nitrite Labor Signs Protein Cervic Dilation Cervic Effacement Cervic Station none none none neg Type Weight in lbs Pre/Post Dialysis Refused With clothes 170.210090742273 BP Diastolic BP Location Tested BP Systolic BP Type 62 106 sitting Fetus Heart Rate Present A 157 Present Fetus Movement A No Comments c/o lower abdominal pain aft er her cat jumped on her. Went to ER and everything was normal. Education given on round ligament pain. Pt also complains of urine odor and increase in vaginal discharge. Urine and vaginal cx collected. Fetus active on BSUS. Pt will keep scheduled appointment. Flowsheet Date 06/29/2024 Rodriguez Score Blood Edema Fundus Height Fundus Units Glucose Ketones Leukocytes Nitrite Labor Signs Protein Cervic Dilation Cervic Effacement Cervic Station none none none trace Type Weight in lbs Pre/Post Dialysis Refused With clothes 169.247807927848 BP Diastolic BP Location Tested BP Systolic BP Type 70 R arm 116 sitting Fetus Heart Rate Present A 144 Present Fetus Movement A Yes Comments here today for a Problem Vis it. still having sx pain with urination, irriation at vaginal opening, green, clumpy discharge. No OB complaints. PTL precautions discussed. Vaginal swab collected, urine collected. Will tx once results are back. RTC - 1.5wks Flowsheet Date 07/09/2024 Rodriguez Score Blood Edema Fundus Height Fundus Units Glucose Ketones Leukocytes Nitrite Labor Signs Protein Cervic Dilation Cervic Effacement Cervic Station none none Other (see comments ) neg Type Weight in lbs Pre/Post Dialysis Refused With clothes 169.255438746919 BP Diastolic BP Location Tested BP Systolic BP Type 58 110 sitting Fetus Heart Rate Present A 138 Present Fetus Movement A Yes Comments Still having some round liga ment pain. Will order maternity belt, pt left before getting measured, will call to come back for measurements so belt could be ordered. No other concerns today. RTC in 4 weeks and will get anatomy scan. Will need MSAFP next visit. Flowsheet Date 08/06/2024 Rodriguez Score Blood Edema Fundus Height Fundus Units Glucose Ketones Leukocytes Nitrite Labor Signs Protein Cervic Dilation Cervic Effacement Cervic Station none none Type Weight in lbs Pre/Post Dialysis Refused With clothes 174.575918852212 BP Diastolic BP Location Tested BP Systolic BP Type 70 120 sitting Fetus Heart Rate Present A 143 Present Fetus Movement A No Comments Anatomy complete. Posterior placenta, EFW 28%. Is c/o feet swelling. Discussed ways to help. No other OB complaints. AFP to be drawn today. [facility], they told her that she was anemic, will draw a CBC today. RTC - 4wks Flowsheet Date 09/02/2024 Rodriguez Score Blood Edema Fundus Height Fundus Units Glucose Ketones Leukocytes Nitrite Labor Signs Protein Cervic Dilation Cervic Effacement Cervic Station none 24 cm none none neg Type Weight in lbs Pre/Post Dialysis Refused Weight 179.524881569645 BP Diastolic BP Location Tested BP Systolic BP Type 62 126 Fetus Heart Rate Present A 147 Fetus Movement Comments No ob complaints. C/O orthos tatic changes when going from sitting to standing. Encouraged to change positions slowly, increase hydration, and eat smaller more frequent meals. Pulse 100, RR 16, Spo2 98%- will check TSH and CMP today. RTC in 4 weeks for 3T labs and GTT. Flowsheet Date 09/30/2024 Rodriguez Score Blood Edema Fundus Height Fundus Units Glucose Ketones Leukocytes Nitrite Labor Signs Protein Cervic Dilation Cervic Effacement Cervic Station none none none neg Type Weight in lbs Pre/Post Dialysis Refused 183.131143686340 BP Diastolic BP Location Tested BP Systolic BP Type 70 116 sitting Fetus Heart Rate Present A 148 Present Fetus Movement A Yes Comments No OB concerns today. Pt is still unsure where she wants to deliver. Possibly [place]. Advised that our physicians here do not deliver at [place] and if she is planning there she would need to transfer care, which needs to be determined sooner rather than later. Advised to also schedule tours at [facility] and [facility] to help with decision. Pt voices understanding. Peds list given. Education on Tdap, Flu vaccine and RSV vaccine at 32 weeks. 3T labs and 1 hr gtt today. RTC in 2weeks. Flowsheet Date 10/13/2024 Rodriguez Score Blood Edema Fundus Height Fundus Units Glucose Ketones Leukocytes Nitrite Labor Signs Protein Cervic Dilation Cervic Effacement Cervic Station none 30 cm none none neg Type Weight in lbs Pre/Post Dialysis Refused With clothes 184.921552975053 BP Diastolic BP Location Tested BP Systolic BP Type 62 100 sitting Fetus Heart Rate Present A 130 Present Fetus Movement A Yes Comments No OB concerns. Passed 3 hr gtt. Going to deliver at [facility] or [facility], still deciding between the 2. RTC in 2 weeks Flowsheet Date 10/27/2024 Rodriguez Score Blood Edema Fundus Height Fundus Units Glucose Ketones Leukocytes Nitrite Labor Signs Protein Cervic Dilation Cervic Effacement Cervic Station 32 cm none neg Type Weight in lbs Pre/Post Dialysis Refused With clothes 184.376977752463 BP Diastolic BP Location Tested BP Systolic BP Type 60 100 sitting Fetus Heart Rate Present A 135 Fetus Movement A Yes Comments No OB concerns today Flowsheet Date 11/11/2024 Rodriguez Score Blood Edema Fundus Height Fundus Units Glucose Ketones Leukocytes Nitrite Labor Signs Protein Cervic Dilation Cervic Effacement Cervic Station none 34 cm none none neg Type Weight in lbs Pre/Post Dialysis Refused With clothes 187.780739639861 BP Diastolic BP Location Tested BP Systolic BP Type 58 102 sitting Fetus Heart Rate Present A 138 Fetus Movement A Yes Comments No OB concerns-4D US today. Remains undecided on hospital and PP contraception. RTC in 2 weeks, plan for GBS at next visit. Flowsheet Date 11/29/2024 Rodriguez Score Blood Edema Fundus Height Fundus Units Glucose Ketones Leukocytes Nitrite Labor Signs Protein Cervic Dilation Cervic Effacement Cervic Station none neg Type Weight in lbs Pre/Post Dialysis Refused With clothes 191.827859260941 BP Diastolic BP Location Tested BP Systolic BP Type 60 100 sitting Fetus Heart Rate Present A 145 Fetus Movement A Yes Comments no ob complaints. GBS comple tedlabor/srom precautionsRTO in 1 week Flowsheet Date 12/01/2024 Rodriguez Score Blood Edema Fundus Height Fundus Units Glucose Ketones Leukocytes Nitrite Labor Signs Protein Cervic Dilation Cervic Effacement Cervic Station none none none neg Type Weight in lbs Pre/Post Dialysis Refused With clothes 191.943197309217 BP Diastolic BP Location Tested BP Systolic BP Type 68 118 sitting Fetus Heart Rate Present A 138 Present Fetus Movement A Yes Comments Patient reports having eleva ab BPs at home. She had one BP that was 147/87, one that was 123/93, and one that was 137/87 in the same day. She also reports some leg swelling that increases when her BP is elevated. Two days ago she had a headache that would not resolve with tylenol along with RUQ pain. Denies any ARELLANO, RUQ pain or swelling today. No edema noted exam. Pre-E labs today. Reviewed precations, when to call HCP/go to ER for evualuation. PT voices understanding. Will keep scheduled appointment. Flowsheet Date 12/08/2024 Rodriguez Score Blood Edema Fundus Height Fundus Units Glucose Ketones Leukocytes Nitrite Labor Signs Protein Cervic Dilation Cervic Effacement Cervic Station 37 cm none neg Type Weight in lbs Pre/Post Dialysis Refused With clothes 193.69862711437 BP Diastolic BP Location Tested BP Systolic BP Type 75 110 sitting Fetus Heart Rate Present A 144 Fetus Movement A Yes Comments no ob concerns reviewed labo r precautions, Flowsheet Date 12/14/2024 Rodriguez Score Blood Edema Fundus Height Fundus Units Glucose Ketones Leukocytes Nitrite Labor Signs Protein Cervic Dilation Cervic Effacement Cervic Station none neg Type Weight in lbs Pre/Post Dialysis Refused Stated 192.367905059505 BP Diastolic BP Location Tested BP Systolic BP Type 78 105 sitting Fetus Heart Rate Present Fetus Movement A Yes Comments IOL scheduled for 12/22 1999 S tata E Nirmala Flowsheet Date 01/10/2025 Rodriguez Score Blood Edema Fundus Height Fundus Units Glucose Ketones Leukocytes Nitrite Labor Signs Protein Cervic Dilation Cervic Effacement Cervic Station Type Weight in lbs Pre/Post Dialysis Refused With clothes 179.183097905438 BP Diastolic BP Location Tested BP Systolic BP Type 52 98 sitting Fetus Heart Rate Present Fetus Movement Comments Flowsheet Date 02/04/2025 Rodriguez Score Blood Edema Fundus Height Fundus Units Glucose Ketones Leukocytes Nitrite Labor Signs Protein Cervic Dilation Cervic Effacement Cervic Station Type Weight in lbs Pre/Post Dialysis Refused With clothes 178.799764674782 BP Diastolic BP Location Tested BP Systolic BP Type 60 110 sitting Fetus Heart Rate Present Fetus Movement Comments Menstrual History Last Menstrual Date Menses Monthly On Bcp Conception Prior Menses Frequency Hcg Plus Date Menarche Onset Age 0503/18/2024 Genetic Screening And Infection History Question Response Note Patient's Age Will Be 35 Years Or Older At Estim ated Date of Delivery false Personal or Family History o f Neural Tube Defect (Meningomyelocele, Spina Bifida, Or Anencephaly) false Personal or Family History of Congenital Heart D efect false Maternal Metabolic Disorder (eg, Type 1 Diabetes , PKU) false Recurrent Loss, Or A Stillbirth false Patient Or Partner Has History Of Genital Herpes false Prior GBS-infected child false History of HIV false History of Hepatitis false Genetic Carrier Screen positive false Delivery Information Delivery Date Delivery Type Labor Anesthesia Weeks Gestation Incision Type Labor Labor Length Hrs Delivered By Post Complications Tubal Sterilization Discharge Date Comments 5 Induce d 39.3 Nirmala Whittington CNM Other Discharge Information Feeding Method Contraceptive Method Maternal HG B and HCT Levels Bottle
--- OUTSIDE RECORDS SUMMARY | 2025-09-20 16:34 | XMS_ITS | Clinical Summary ---
Author Organization [facility] [place] [facility] [address] [facility] Address [address] [place] [address] Care Team Providers Care Electric Melt Operator Name Role Phone Unknown, Notinfile Primary Care Provider Unavail able Allergies Active Allergy Reactions Criticality Noted Date Comments Adhesive Hives Medium 02/27/2010 Rips skin off Doxycycline Nausea only Medium 02/12/2025 Vortioxetine Other (See comments) Low 02/16/2020 Trintellix, itchy Medications ketoconazole (NIZORAL) 2 % shampoo 1 Active fluticasone propionate (FLONASE) 50 mcg/actuation nasal sprayIndications :Seasonal allergic rhinitis due to pollen Administer 2 sprays into each nostril daily 16 g 11 2 Active albuterol 2.5 mg /3 mL (0.083 %) nebulizer solutionIndicati ons:Mild intermittent asthma, unspecified whether complicated Take 3 mL (2.5 mg total) by nebulization 4 (four) times a day as needed for wheezing or shortness of breath 90 mL 3 2 Active venlafaxine XR (EFFEXOR-XR) 75 mg 24 hr capsule Take 1 capsule (75 mg total) by mouth daily [address] (PROTONIX) 40 mg EC tablet Take 1 tablet (40 mg total) by mouth daily 2 Active bacitracin 500 unit/gram ointment Apply topically 2 (two) times a day 120 g 3 Active albuterol HFA (PROVENTIL HFA,VENTOLIN HFA,PROAIR HFA) 90 mcg/actuation inhaler Inhale 2 puffs every 4 (four) hours as needed for wheezing 1 each 1 4 025 Active benzonatate (TESSALON) 200 mg capsuleIndicatio ns:Acute cough Take 1 capsule (200 mg total) by mouth 3 (three) times a day as needed for cough 30 capsule 5 Active Active Problems Problem Noted Date Diagnosed Date Gastroesophageal reflux disease without esophagi tis 11/18/2024 Hyperlipidemia 11/17/2024 Polycystic ovary syndrome 04/16/2024 Dysuria 03/19/2024 Abnormal vaginal bleeding 12/25/2023 Anxiety 12/25/2023 Infection of skin and subcutaneous tissue 2023 Cat scratch 05/14/2023 Asthma 12/30/2021 Mild intermittent asthma without complication Other constipation 10/24/2021 Assessment & Plan (11/06/2021 2:12 PM AUDIO VISUAL COLLECTIONS COORDINATOR): Continues to have significant constipation; drinking significant fluids throughout day Encouraged continued use of uwej-doq-[id number] bowel softener such as MiraLax Assessment & Plan (10/24/2021 4:34 PM AUDIO VISUAL COLLECTIONS COORDINATOR): Unclear etiology; may related to poor fluid intake, poor food intake in the low- fiber diet Encouraged patient for high-fiber diet, consume more fluids Will prescribe medications for dyspepsia in order to improve appetite Plaque psoriasis 08/29/2021 Overview (08/29/2021): Located in scalp Assessment & Plan (11/06/2021 2:12 PM AUDIO VISUAL COLLECTIONS COORDINATOR): Referral to dermatology for psoriasis and persistent polyps Attention deficit hyperactiv ity disorder (ADHD), predominantly inattentive type 03/16/2021 Assessment & Plan (03/16/2021 1:06 PM CDT): Will give trial of concerta today as patient had poor response to adderrall -given underling depression and sleep pattern issues will also evaluate options for anti-depressant therapy for ADHD Dyspepsia 04/01/2016 Assessment & Plan (10/24/2021 4:34 PM AUDIO VISUAL COLLECTIONS COORDINATOR): Not well controlled, will start meclizine 25 mg p.r.n. for nausea, omeprazole 20 mg daily for heartburn Follow-up on response to therapy in approximately 1-2 months Epigastric abdominal pain 04/01/2016 Overview (03/16/2021): February, CBC, CMP, CRP, Amylase, Lipase--WNL March 2016 EGD--Normal with normal path. Assessment & Plan (11/06/2021 2:11 PM AUDIO VISUAL COLLECTIONS COORDINATOR): Continues to have significant difficulty, worse with eating, has bloating which required patient to use in drawl Worse with greasy foods and dairy; previous imaging is negative for gallstones Has family history of gallbladder dysfunction Referral to GI for further evaluation and determination of best treatment Immunizations Immunization Administration Dates Next Due Influenza, Unspecified 10/24/2021(Deferr ed: Patient Refused),08/29/2021(Deferred: Patient Refused),11/17/2020(Deferred: Patient Refused),11/17/2020(Deferred: Patient Refused),11/17/2020(Deferred: Patient Refused),11/17/2019(Deferred: Patient Refused) Tdap 08/06/2023() Surgical History Surgery Date Site/Laterality Comments TONSILLECTOMY WISDOM TOOTH EXTRACTION Medical History Medical History Date Comments Numbness neck numbness an d in shoulder ADHD (attention deficit hyperactivity disorder) Asthma Allergies Family History Medical History Relation Name Comments ADD / ADHD Brother 1 Asthma Brother 2 Jase Sifuentes DJD Father YUAN SIFUENTES Depression Father YUAN SIFUENTES Memory loss Father YUAN SIFUENTES Mental illness Father YUAN SIFUENTES Hypertension Maternal Grandmother Misty King Asthma Mother Hawa Sifuentes Diabetes Mother Hawa Sifuentes Hypertension Mother Hawa Sifuentes Thyroid disease Mother Hawa Sifuentes Hypertension Paternal Grandmother Ly Sifuentes Relation Name Status Comments Brother 1 Alive Brother 2 Jase Sifuentes Father YUAN SIFUENTES Alive Maternal Grandmother Misty King Mother Hawa Sifuentes Alive Paternal Grandmother Ly Sifuentes Social History Tobacco Use Types Packs/Day Years Used Date Smoking Tobacco: Never Smokeless Tobacco: Never AUDIT-C Answer Date Recorded Q1: How often do you have a drink containing alc ohol? Never 10/24/2021 Average Number of Drinks Not on file 021 Q3: How often do you have si x or more drinks on one occasion? Never 10/24/2021 PHQ-2 Answer Date Recorded PHQ-2 Total Score (If total score is 3 or more points, staff should administer the PHQ-9) 0 08/29/2021 Personal Safety Answer Date Recorded Have you ever been in or are you currently in a harmful physical or emotional relationship or is someone making you feel afraid or unsafe? Denies 11/14/2024 Comments No Sex and Gender Information Value Date Recorded Sex Assigned at Not on file Legal Sex Female 11:27 AM AUDIO VISUAL COLLECTIONS COORDINATOR Gender Identity Female 07/29/2021 8:00 AM CDT Sexual Orientation Straight 07/29/2021 8: 00 AM CDT Obstetrics History Para Term AB IAB SAB Ectopic Multiple Livin g Live Births 1 Date Outcome GA Total Labor Labor/2nd/3rd Weight Sex Type Anes PTL Sabrina A1 A5 Name Clin Last Filed Vital Signs Vital Sign Reading Time Taken Comments Blood Pressure 114/64 04/11/2025 2:57 PM CDT Pulse 77 04/11/2025 2:57 PM CDT Temperature 37.1 C (98.7 F) 04/11/2025 2:57 PM CDT Respiratory Rate 16 04/11/2025 2:57 PM CDT Oxygen Saturation 99% 04/11/2025 2:57 PM CDT Inhaled Oxygen Concentration - - Weight 82.6 kg (182 lb) 04/11/2025 2:57 PM CDT Height 162.6 cm (5' 4) 04/11/2025 2:57 PM CDT Body Mass Index 31.24 04/11/2025 2:57 PM CDT Plan of Treatment Health Maintenance Due Date Last Done Comments Cervical Cancer Screening 2001 Chlamydia and Gonorrhea (GC/CT) Screening 2001 Hepatitis C Screening 2001 Varicella Vaccines (1 of 2 - 13+ 2-dose series) 2014 HPV Vaccines (1 - 3-dose series) 2016 Meningococcal B Vaccine (1 o f 2 - Standard) 2017 Hepatitis B Screening 2019 Regular Well Visit/Exam 18-64 2019 Pneumococcal vaccine <65 (1 of 2 - PCV) 2020 Depression Screening 08/29/2022 08/29/2021, 02/29/20 21 Influenza Vaccine (#1) 2025 DTaP/Tdap/Td Vaccine (2 - Td or Tdap) 05/14/2033 Insurance [facility] Member Subscriber Plan / Payer (Ef fective 2024-Present) Name:Cameron Sifuentes Relation to Subscriber:Self Name:Cameron Sifuentes Payer ID:[id number] (NAIC) Group ID:Not on file Type:[employer] Address: [address] [place] [address] [facility] Address: [facility] [id number] [place] [address] [facility] Member Subscriber Plan / Payer (Ef fective 2024-Present) Name:Cameron Sifuentes Relation to Subscriber:Self Name:Cameron Sifuentes Payer ID:[id number] (NAIC) Group ID:Not on file Type:[employer] Address: [address] [place] [address] [employer] Care Teams Electric Melt Operator Relationship Specialty Start Date End Date Unknown, Notinfile PCP - General 11/14/24
--- OUTSIDE RECORDS SUMMARY | 2025-09-20 16:34 | XMS_ITS | Clinical Summary ---
Author Organization [facility] Address [address] [place] [address] Phone Care Team Providers Care Professor Of Literature Name Role Phone Simone Rodriguez MD Primary Care Provider [phone] Richelle Lala RN Unavailable Unavaila ble Kathi Longoria APRN, [facility] Unavailable [phone] Allergies Active Allergy Reactions Criticality Noted Date Comments Doxycycline Nausea Medium 02/12/2025 Iodinated Contrast Media Anaphylaxis,Shortnes s of Breath,Swelling 11/14/2024 Vortioxetine Itching,Other (see Comments) Low 02/16/2020 Trintellix, itchy Wound Dressing Adhesive Itching 11/18/2024 Bandage adhesive Medications albuterol (PROVENTIL, VENTOLIN) (2.5 MG/3ML) 0.083% Nebulizer Soln take 2.5 mg by inhalation. 2 Active albuterol 108 (90 Base) MCG/ACT Aerosol SolutionIndicati ons:Mild intermittent asthma without complication take 2 Puffs by inhalation every 4 hours as needed for Cough (SOB). 18 g 5 5 026 Active Drospirenone-Est etrol (Nextstellis) 3-14.2 MG Tablet Take by mouth daily. Active pantoprazole (PROTONIX) 40 MG Tablet Delayed ResponseIndicati ons:Gastroesopha geal reflux disease without esophagitis TAKE 1 TABLET BY MOUTH EVERY DAY 30 Tablet 2 Active triamcinolone (KENALOG) 0.1 % Cream Apply 3 times daily. Application Site: Right breast 15 g Active cephALEXin (KEFLEX) 500 MG Capsule Take 1 Capsule by mouth 4 times daily for 7 days. 28 Capsule 5 025 Active Problems Problem Noted Date Diagnosed Date depression 02/07/2025 Gastroesophageal reflux disease without esophagi tis 11/18/2024 Mixed hyperlipidemia 11/17/2024 Polycystic ovary syndrome 04/16/2024 Anxiety 12/25/2023 Mild intermittent asthma without complication Plaque psoriasis 08/29/2021 Overview (11/18/2024): Located in scalp Attention deficit hyperactiv ity disorder (ADHD), predominantly inattentive type 03/16/2021 Resolved Problems Problem Noted Date Diagnosed Date Resolved Date Family history of [place]'s chorea 05/18/2025 05/18/2025 Overview (05/18/2025): Maternal grandfather and multiple family member's on maternal side. Pt's mother was negative and was told patient did not need tested. Childhood asthma 01/20/2025 01/20/2025 Overview (01/20/2025): Asthma action plan explained and given to [...] placed to population health iin [facility] 1. Encounters Date Type Department Care Team Description 08/31/2025 9:08 AM CDT - 08/31/2025 10:07 AM CDT Emergency [facility] [address] [place] [address] Barrett Lara MD Cellulitis of breast Discharge Disposition: Discharged to home or Selfcare 08/31/2025 Travel 06/21/2025 1:30 PM CDT [facility] [address] [place] [address] Jennifer Ramirez Patient Outreach Discharge Disposition: Discharged to home or Selfcare 06/21/2025 Travel 06/20/2025 Results Follow-Up [facility] - Primary Care - [place] [address] [place] [address] Simone Rodriguez MD HOLTER MONITOR RECORDING ONLY-24 HOUR from Last 3 Months Immunizations Immunization Administration Dates Next Due TDAP Vaccine 05/14/2023 Td Vaccine (preservative free) 06/09/2025 Family History Medical History Relation Name Comments Asthma Brother Heart Disease Maternal Aunt Congenital Heart Disease Maternal Grandfather ? Cancer Maternal Great-Grandfather C olon Cancer Maternal Great-Grandmother B reast Asthma Mother Diabetes Mother Relation Name Status Comments Brother Maternal Aunt Alive Maternal Grandfather Maternal Great-Grandfather Alive Maternal Great-Grandmother Alive Mother Social History Tobacco Use Types Packs/Day Years Used Date Smoking Tobacco: Never Smokeless Tobacco: Never Tobacco Cessation:Counseling Given: Not Answered Alcohol Use Standard Drinks/Week Comments Not Currently 0 (1 standard drink = 0.6 oz pur e alcohol) [facility] Utilities Answer Date Recorded In the past 12 months has [employer], oil, or water [employer] threatened to shut off services in your home? No 02/14/2025 Social Connection and Isolation Panel Answer Date Recorded In a typical week, how many times do you talk on the phone with family, friends, or neighbors? Patient declined 02/15/20 How often do you get togethe r with friends or relatives? Patient declined 02/14/2025 How often do you attend chur ch or roman catholic services? Patient declined 02/14/2025 Do you belong to any clubs o r organizations such as gnosticism groups, unions, fraternal or athletic groups, or school groups? Patient declined 02/14/2025 How often do you attend meet ings of the clubs or organizations you belong to? Patient declined 02/14/2025 Are you , , di vorced, , never , or living with a partner? Living with partner 02/14/2025 AUDIT-C Answer Date Recorded Q1: How often do you have a drink containing alc ohol? Monthly or less 02/14/2025 Q2: How many drinks containi ng alcohol do you have on a typical day when you are drinking? 1 or 2 02/14/2025 Q3: How often do you have si x or more drinks on one occasion? Never 02/14/2025 Overall Financial Resource Strain (CARDIA) Answe r Date Recorded How hard is it for you to pa y for the very basics like food, housing, medical care, and heating? Not hard at all 02/14/2025 PHQ-2 Answer Date Recorded Total Score - Questions 1-9 0 07/0 12/2024 [facility] - Occupational Stress Questionnaire Answer Date Recorded Do you feel stress - tense, restless, nervous, or anxious, or unable to sleep at night because your mind is troubled all the time - these days? Only a little 02/14/2025 Exercise Vital Sign Answer Date Recorde d On average, how many days pe r week do you engage in moderate to strenuous exercise (like a brisk walk)? 0 days On average, how many minutes do you engage in exercise at this level? Patient declined 02/14/2025 Hunger Vital Sign Answer Date Recorded Within the past 12 months, y ou worried that your food would run out before you got the money to buy more. Patient declined Within the past 12 months, t he food you bought just didn't last and you didn't have money to get more. Patient declined PRAPARE - Transportation Answer Date Re corded In the past 12 months, has l ack of transportation kept you from medical appointments or from getting medications? No 01/17 In the past 12 months, has l ack of transportation kept you from meetings, work, or from getting things needed for daily living? No 02/14/2025 Housing Stability Vital Sign Answer Pierre e Recorded In the last 12 months, was t here a time when you were not able to pay the mortgage or rent on time? No 02/14/2025 In the past 12 months, how m any times have you moved where you were living? 0 02/14/2025 At any time in the past 12 m [facility], were you homeless or living in a long term (including now)? No 02/14/2025 Comments No Sex and Gender Information Value Date Recorded Sex Assigned at Female 06/10/2025 5:24 AM CDT Legal Sex Female 10:40 AM CDT Gender Identity Female 06/10/2025 5:24 AM CDT Sexual Orientation Not on file Last Filed Vital Signs Vital Sign Reading Time Taken Comments Blood Pressure 113/77 08/31/2025 9:18 AM CDT Pulse 83 08/31/2025 9:18 AM CDT Temperature 36.3 C (97.4 F) 08/31/2025 9:18 AM CDT Respiratory Rate 17 08/31/2025 9:18 AM CDT Oxygen Saturation 99% 08/31/2025 9:18 AM CDT Inhaled Oxygen Concentration - - Weight 84.4 kg (186 lb) 08/31/2025 9:18 AM CDT Height 162.6 cm (5' 4) 08/31/2025 9:18 AM CDT Body Mass Index 31.93 08/31/2025 9:18 AM CDT Plan of Treatment Upcoming Encounters Date Type Department Care Team (Late st Contact Info) Description 11/21/2025 1:15 PM PAINTER BARREL Office Visit [facility] - Primary Care - [place] [address] [place] [address] Simone Rodriguez MD [address] [place] [address] Health Maintenance Due Date Last Done Comments Human Papillomavirus (HPV) Immunization (1 - 3-dose series) 2016 Meningococcal B Immunization (1 of 2 - Standard) 2017 Hepatitis B Immunization (1 of 3 - 19+ 3-dose series) 2020 Pneumococcal Immunization Combined (1 of 2 - PCV) 2020 Pap Smear 2022 Influenza Immunization (#1) 2025 SARS-COV-2 Immunization ( season) 2025 01/09/2022, 12/19/2021 Td Immunization Every 10 Yea rs (Adults With 1 Tdap) 06/09/2035 06/09/2025, 05/14/2023 Respiratory Syncytial Virus (RSV) Immunization (Adult) (1 - 1-dose 75+ series) 2076 TdaP Immunization Discontinued 05/14/2023 Hepatitis C Virus (HCV) Screening Completed 01/19/2025 Meningococcal Immunization (ACWY) Aged Out No longer eligible based on patient's age to complete this topic Rotavirus Immunization Aged Out No lo nger eligible based on patient's age to complete this topic Goals Goal Patient Goal Type Associated Problems Recent Progress Patient-Stated? Author Depression and Anxiety Management Depression No Salina Jaime, CATCH BASIN CLEANER Note: Goal/Objective: Decrease symptoms of depression and anxiety through supportive CBT skills building and client centered treatment. Anticipated Time Frame for Goal Completion: 8 weeks Procedures Procedure Name Priority Date/Time Associated Diagnosis Comments HEPATITIS C ANTIBODY Routine 01/19/2025 11:21 AM PAINTER BARREL Encounter for hepatitis C screening test for low risk patient from Last 3 Months or Most Recently Relevant to Health Maintenance Results * HEPATITIS C ANTIBODY (01/19/2025 11:21 AM PAINTER BARREL) hepatitis C antibody 0.11 <1 S/CO 01/19/2025 11:28 PM PAINTER BARREL [facility] Comment: Signal/Cutoff ratio < 0.79 is Nondetected Signal/Cutoff ratio 0.80-0.99 is Grayzone Signal/Cutoff ratio > 0.99 is Detected Supplemental assays are recommended if signal/cutoff ratio is >/=1.00. Signal/cutoff ratio result >/= 5.00 is 97% predictive of positivity for recombinant immunoblot assay (RIBA) and will be reported to the [place] Department of Public Health as required. Blood Venipuncture / Unknown 01/19/2025 11:21 AM PAINTER BARREL 01/19/2025 11:21 AM PAINTER BARREL us Simone Rodriguez MD CHEMISTRY ORDERABLES Betty l Result [facility] [address] [place] [address], [place] from Last 3 Months or Most Recently Relevant to Health Maintenance Insurance MEDICAID [employer] [facility] Care Teams Professor Of Literature Relationship Specialty Start Date End Date Simone Rodriguez MD [address] [place] [address] PCP - General Internal Medicine 11/18/24 Richelle Lala, RN [place] Registered Nurse Obstetrics & Gynecology 11/18/24 Kathi Longoria APRN, [facility] [address] [address] Nurse Practitioner Pulmonary Disease 01/20/25
== END 2025-09-20 17:25 | disposition home or self-care (01) ==
PROVIDERS: Emergency Provider Registered Nurse; PCP Internal Medicine
DX: M79.671 Pain in right foot (principal)
CPT/HCPCS: 73630; 99213; G0463